=== PATIENT | male | born 1985 | race Caucasian/White ===

== ENCOUNTER 2023-06-13 13:06 | Outpatient (AMB) | payer MEDICAID, SELFPAY ==
--- NOTE | 2023-06-13 13:19 | MHC.OFFVIS ---
Intake Intake Visit Reasons: nephrolithiasis Intake Note: New Patient presents for initial visit for nephrolithiasis Urology Medications: none Blood Thinner: none Network Consultant Required: No Accompanied by: Self / Same As Patient Allergies oxycodone [OXYCODONE] Allergy (Unknown, Unverified 06/13/23 14:33) ITCHY Medication List - Last Reconciled 06/13/23 by VIN Shah- clotrimazole-betamethasone 1-0.05 % appl topical BID diclofenac sodium 1% grams topical DIRECTED etanercept (Enbrel SureClick) 50 mg subcut QWEEK fluocinolone acetonide oil 0.01% drps otic (ears) gabapentin 600 mg PO TID PRN ibuprofen 600 mg PO Q6H PRN omeprazole 20 mg PO QAM HPI HPI Comments History of Present Illness Details Noah is a very pleasant 37-year-old male patient of Dr. Taylor. He presents to the office today as a new patient for nephrolithiasis. In discussion with the patient today he reports having seeked emergency room care at [facility] proximally 1 month ago for left-sided abdominal pain had been experiencing at which time a CT was ordered and performed. These results were reviewed with the patient today. 4 mm obstructing stone in the left UPJ. He reports previously following up with Dr. Lazar over 7 years ago for his longstanding history of nephrolithiasis at which time he required surgical intervention with ureteroscopy and stent placement for a obstructing stone. He reports pain has since subsided however he is unsure if he has urinated his stone. He currently denies any bothersome urinary issues or concerns. He does endorse to not be drinking plenty of water daily. When asked he denies urinary urgency, urinary frequency, incontinence, nocturia, hematuria, dysuria, foul smelling urine, changes to urinary stream, flank pain, fever, and or chills. He is happy with his current voiding parameters. Review of Systems Const All systems reviewed & are unremarkable except as noted in HPI and below Physical Exam Const General: cooperative, healthy appearing, comfortable, no acute distress, well developed, alert and awake Orientation/consciousness: patient oriented x3 Limitations: no limitations HEENT Head: Yes normal to inspection, Yes normocephalic and Yes atraumatic Ears: hearing grossly normal bilaterally Eyes General: appearance normal, both eyes and all related structures Neck Neck: Yes normal visual inspection and Yes trachea midline Chest Chest palpation & inspection: normal inspection of the chest Resp Effort & Inspection: normal respiratory effort and able to speak in complete sentences Cardio Rate: regular rate GI Inspection: Yes normal to inspection General: Yes no CVA tenderness Back/Spine/Pelvis Back: no CVA tenderness Skin General skin exam: no rashes or lesions noted Neuro General: patient oriented x3 Extrem General: Yes normal to inspection Psych Appearance: grossly normal and well kempt Mental Status: mental status grossly normal Speech and movement: Normal speech and movement present and Clear speech present Affect: normal affect Attitude: cooperative Thought process: Normal thought process present Thought content: Normal thought content present Insight: Fair insight present (Psych) Judgement: Fair judgement present (Psych) Results AMB Urinalysis, Automated UA Leukoctes 0 Alexis/uL Last Edit by [employer] on 06/13/23 13:29 UA Nitrite Negative Last Edit by [employer] on 06/13/23 13:29 UA Urobilinogen 0.2 mg/dL Last Edit by [employer] on 06/13/23 13:29 UA Protein 0 mg/dL Last Edit by [employer] on 06/13/23 13:29 UA pH 6.0 Last Edit by [employer] on 06/13/23 13:29 UA Blood 0 Willy/uL Last Edit by [employer] on 06/13/23 13:29 UA Specific [place] 1.020 Last Edit by [employer] on 06/13/23 13:29 UA Ketone Negative Last Edit by [employer] on 06/13/23 13:29 UA Bilirubin 0 mg/dL Last Edit by [employer] on 06/13/23 13:29 UA Glucose 0 mg/dL Last Edit by [employer] on 06/13/23 13:29 Results Reviewed Results Reviewed: Laboratory Last Values Urine pH (Auto) 6.0 06/13/23 13:21 Specific [place] (Auto) 1.020 06/13/23 13:21 Urine Protein (Auto) 0 mg/dL 06/13/23 13:21 Glucose (UA)(Auto) 0 mg/dL 06/13/23 13:21 Urine Ketones (Auto) Negative 06/13/23 13:21 Urine Blood (Auto) 0 Willy/uL 06/13/23 13:21 Urine Nitrite (Auto) Negative 06/13/23 13:21 Urine Bilirubin (Auto) 0 mg/dL 06/13/23 13:21 Urine Urobilinogen (Auto) 0.2 mg/dL 06/13/23 13:21 Leukocyte Esterase (Auto) 0 Alexis/uL 06/13/23 13:21 Assessment & Plan Assessment & Plan (1) Nephrolithiasis: Code(s): N20.0 - Calculus of kidney Plan In office urinalysis results reviewed with the patient today; as noted above. Will obtain retroperitoneal ultrasound for further assessment evaluation. Patient currently denies any bothersome urinary issues or concerns. Discussed at length potential causes of nephrolithiasis. Discussed, educated, and stressed the importance of drinking plenty of water daily. Discussed possible near future metabolic workup for further assessment evaluation. Patient reports be happy with current voiding parameters. Follow-up in 1month with imaging to be completed prior; or sooner with any issues, concerns, and or questions. Orders: Orders US retroperitoneal comp Today N20.0 - Calculus of kidney AMB Urinalysis Automated Today Z13.9 - Encounter for screening, unspecified Patient Instructions: The patient had an opportunity to ask questions regarding the treatment plan. All questions were answered. Physical exam, labs, and imaging were discussed and reviewed in detail. As well as risks, benefits, and discussion of treatment choices. No major barriers to understanding were identified. The patient expressed understanding and agreement with the above treatment plan. The patient was made aware they should contact our office by phone for worsening of their current condition, the appearance of new symptoms, or with any questions or concerns. Compliance is encouraged with any medications and follow up testing that is ordered. It is a privilege to be allowed the opportunity to participate in? your urological care.? Again, if you have any questions or concerns If you have any questions or concerns please do not hesitate to contact me. The office is [phone]. This note is constructed using voice recognition software. While every effort has been made to ensure accuracy fish and wildlife technician errors may have been included. Yours sincerely, MELLISA Shah Coding Level of Care Code New Pt Level 3 (89832) Diagnoses Nephrolithiasis N20.0
== END 2023-06-13 13:45 | disposition home or self-care (01) ==
PROVIDERS: PCP Psychiatry & Neurology Psychiatry; Visit Provider Nurse Practitioner Family
DX: N20.0 Calculus of kidney (principal)
CPT/HCPCS: 99203

== ENCOUNTER → 2023-06-13 13:06 | Outpatient (BNVA) | payer MEDICAID, SELFPAY | PROVIDERS: PCP Psychiatry & Neurology Psychiatry; Visit Provider Nurse Practitioner Family | DX: N20.0 Calculus of kidney (principal) | CPT/HCPCS: 81003; 99212 ==

== ENCOUNTER 2023-07-04 14:29 | Outpatient (REF) | payer MEDICAID, SELFPAY ==
--- NOTE | ~2023-07-04 | US_ITS ---
EXAMINATION: US RETROPERITONEAL COMPLETE (RENAL) CLINICAL INFORMATION: Calculus of kidney. COMPARISON: None available. TECHNIQUE: Real-time imaging of the kidneys and bladder. FINDINGS: RIGHT KIDNEY: 10.1 x 5.2 x 4.1 cm (SAG x AP x TRV). The kidney is normal in size, contour, and echogenicity. Renal cortical thickness is normal. No focal parenchymal lesions or hydronephrosis. Nonobstructing stones measuring up to 4 mm. LEFT KIDNEY: 10.4 x 5.5 x 6.0 cm (SAG x AP x TRV). The kidney is normal in size, contour, and echogenicity. Renal cortical thickness is normal. No calculi or focal parenchymal lesions. No hydronephrosis. BLADDER: Well distended and normal. Bilateral ureteral jets are demonstrated. Prevoid bladder volume is 150 mL. Postvoid bladder volume is 12.3 mL. ADDITIONAL FINDINGS: Prostate is within normal limits measuring 12 mL in volume US/US retroperitoneal comp IMPRESSION: Nonobstructing right renal nephrolithiasis. No hydronephrosis.
== END 2023-07-04 14:30 | disposition home or self-care (01) ==
LOC: HO.US 14:29
PROVIDERS: Visit Provider Nurse Practitioner Family
DX: N20.0 Calculus of kidney (principal)
CPT/HCPCS: 76770

== ENCOUNTER 2023-07-14 15:20 | Outpatient (AMB) | payer MEDICAID, SELFPAY ==
--- NOTE | 2023-07-14 15:22 | A.OFFVIS_ITS ---
Intake Intake Visit Reasons: 4w/US(set) Intake Note: Patient presents for follow up visit for Nephrolithiasis and /ultrasound results Imagin07/04/23 Urology Medications: none Blood Thinner: none [employer] Required: No Accompanied by: Self / Same As Patient Allergies oxycodone [OXYCODONE] Allergy (Unknown, Verified 07/14/23 15:53) ITCHY Medication List - Last Reconciled 07/14/23 by VIN Shah-SHAD clotrimazole-betamethasone 1-0.05 % appl topical BID diclofenac sodium 1% grams topical DIRECTED etanercept (Enbrel SureClick) 50 mg subcut QWEEK fluocinolone acetonide oil 0.01% drps otic (ears) gabapentin 600 mg PO TID PRN ibuprofen 600 mg PO Q6H PRN omeprazole 20 mg PO QAM HPI HPI Comments History of Present Illness Details Noah is a very pleasant 37-year-old male patient of Dr. Taylor. He presents to the office today for follow-up. Of note, patient was seen approximately 1 month ago as a new patient for nephrolithiasis at which time a retroperitoneal ultrasound was ordered for further assessment evaluation. These results reviewed with the patient today. Right kidney with no lesions or hydronephrosis. Nonobstructing stones measuring up to 4 mm. Left kidney with no calculi, lesions, and or hydronephrosis. The bladder is well distended and normal. Bilateral ureteral jets are demonstrated. Pre void bladder volume is approximately 150 mL. Postvoid bladder volume is approximately 10 mL. Prostate is within normal size measuring approximately 12 mL. Patient reports pain had been experiencing approximately 2 months ago when he seeked emergency room care at [facility] [place] has since subsided. Discussed at length potential causes of nephrolithiasis. He does have a longstanding history of nephrolithiasis requiring surgical intervention with a ureteroscopy and stent placement in the past with Dr. Lazar. He otherwise currently denies any bothersome urinary issues or concerns. He does endorse to not be drinking plenty of water daily. When asked he denies urinary urgency, urinary frequency, incontinence, nocturia, hematuria, dysuria, foul smelling urine, changes to urinary stream, flank pain, fever, and or chills. He is happy with his current voiding parameters. Review of Systems Const All systems reviewed & are unremarkable except as noted in HPI and below Physical Exam Const General: cooperative, healthy appearing, comfortable, no acute distress, well developed, alert and awake Orientation/consciousness: patient oriented x3 Limitations: no limitations HEENT Head: Yes normal to inspection, Yes normocephalic and Yes atraumatic Ears: hearing grossly normal bilaterally Eyes General: appearance normal, both eyes and all related structures Neck Neck: Yes normal visual inspection and Yes trachea midline Chest Chest palpation & inspection: normal inspection of the chest Resp Effort & Inspection: normal respiratory effort and able to speak in complete sentences Cardio Rate: regular rate GI Inspection: Yes normal to inspection General: Yes no CVA tenderness Back/Spine/Pelvis Back: no CVA tenderness Skin General skin exam: no rashes or lesions noted Neuro General: patient oriented x3 Extrem General: Yes normal to inspection Psych Appearance: grossly normal and well kempt Mental Status: mental status grossly normal Speech and movement: Normal speech and movement present and Clear speech present Affect: normal affect Attitude: cooperative Thought process: Normal thought process present Thought content: Normal thought content present Insight: Fair insight present (Psych) Judgement: Fair judgement present (Psych) Results AMB Urinalysis, Automated UA Leukoctes 0 Alexis/uL Last Edit by Becca Wileydevon [facility] on 07/14/23 15 :36 UA Nitrite Negative Last Edit by Becca Wileydevon [facility] on 07/14/23 15: 36 UA Urobilinogen 0.2 mg/dL Last Edit by Becca Wileydevon [facility] on 4 15:36 UA Protein 0 mg/dL Last Edit by Becca Wileydevon [facility] on 07/14/23 15:36 UA pH 6.0 Last Edit by Becca Wileydevon [facility] on 07/14/23 15:36 UA Blood 80 Willy/uL [facility] on 07/14/23 15:36 UA Specific [place] 1.025 Last Edit by Becca Wileydevon [facility] on 15:36 UA Ketone Negative Last Edit by Becca Wileydevon [facility] on 07/14/23 15:3 6 UA Bilirubin 0 mg/dL Last Edit by Becca Wileydevon [facility] on 02/12/24 15: 36 UA Glucose 0 mg/dL Last Edit by Becca Wiley CMA on 07/14/23 15:36 Results Reviewed Results Reviewed: Laboratory Last Values Urine pH (Auto) 6.0 07/14/23 15:23 Specific [place] (Auto) 1.025 07/14/23 15:23 Urine Protein (Auto) 0 mg/dL 07/14/23 15:23 Glucose (UA)(Auto) 0 mg/dL 07/14/23 15:23 Urine Ketones (Auto) Negative 07/14/23 15:23 Urine Blood (Auto) 80 Willy/uL 07/14/23 15:23 Urine Nitrite (Auto) Negative 07/14/23 15:23 Urine Bilirubin (Auto) 0 mg/dL 07/14/23 15:23 Urine Urobilinogen (Auto) 0.2 mg/dL 07/14/23 15:23 Leukocyte Esterase (Auto) 0 Alexis/uL 07/14/23 15:23 EXAMINATION: US RETROPERITONEAL COMPLETE (RENAL) CLINICAL INFORMATION: Calculus of kidney. COMPARISON: None available. TECHNIQUE: Real-time imaging of the kidneys and bladder. FINDINGS: RIGHT KIDNEY: 10.1 x 5.2 x 4.1 cm (SAG x AP x TRV). The kidney is normal in size, contour, and echogenicity. Renal cortical thickness is normal. No focal parenchymal lesions or hydronephrosis. Nonobstructing stones measuring up to 4 mm. LEFT KIDNEY: 10.4 x 5.5 x 6.0 cm (SAG x AP x TRV). The kidney is normal in size, contour, and echogenicity. Renal cortical thickness is normal. No calculi or focal parenchymal lesions. No hydronephrosis. BLADDER: Well distended and normal. Bilateral ureteral jets are demonstrated. Prevoid bladder volume is 150 mL. Postvoid bladder volume is 12.3 mL. ADDITIONAL FINDINGS: Prostate is within normal limits measuring 12 mL in volume IMPRESSION: Nonobstructing right renal nephrolithiasis. No hydronephrosis. Assessment & Plan Assessment & Plan (1) Nephrolithiasis: Code(s): N20.0 - Calculus of kidney Plan In office urinalysis results reviewed with the patient today; as noted above. Recent retroperitoneal ultrasound results reviewed with the patient today; as noted above. Patient currently denies any bothersome urinary issues or concerns. Discussed, educated, and stressed the importance of continuing to drink plenty of water daily. Continue adding 1 oz of lemon juice to water daily. Start vitamin B6 as discussed and prescribed. He is happy with his current voiding parameters. Will obtain renal ultrasound in 6 months. Follow-up in 6 months with imaging to be completed prior; or sooner with any issues, concerns, and or questions. Orders: Orders AMB Urinalysis Automated Today R33.9 - Retention of urine, unspecified US renal BI 6 Months N20.0 - Calculus of kidney Medications: New pyridoxine (vitamin B6) 50 mg (1/2 x 100 mg) PO DAILY 90 days 45 tabs 1RF N13.2 - Hydronephrosis with renal and ureteral calculous obstruction Patient Instructions: The patient had an opportunity to ask questions regarding the treatment plan. All questions were answered. Physical exam, labs, and imaging were discussed and reviewed in detail. As well as risks, benefits, and discussion of treatment choices. No major barriers to understanding were identified. The patient expressed understanding and agreement with the above treatment plan. The patient was made aware they should contact our office by phone for worsening of their current condition, the appearance of new symptoms, or with any questions or concerns. Compliance is encouraged with any medications and follow up testing that is ordered. It is a privilege to be allowed the opportunity to participate in? your urological care.? Again, if you have any questions or concerns If you have any questions or concerns please do not hesitate to contact me. The office is [phone]. This note is constructed using voice recognition software. While every effort has been made to ensure accuracy tobacco sprayer errors may have been included. Yours sincerely, MELLISA Shah Coding Level of Care Code Est Pt Level 4 (14841) Diagnoses Nephrolithiasis N20.0
== END 2023-07-14 15:51 | disposition home or self-care (01) ==
PROVIDERS: PCP Psychiatry & Neurology Psychiatry; Visit Provider Nurse Practitioner Family
DX: N20.0 Calculus of kidney (principal); R33.9 Retention of urine, unspecified
CPT/HCPCS: 99214

== ENCOUNTER → 2023-07-14 15:20 | Outpatient (BNVA) | payer MEDICAID, SELFPAY | PROVIDERS: PCP Psychiatry & Neurology Psychiatry; Visit Provider Nurse Practitioner Family | DX: N20.0 Calculus of kidney (principal) | CPT/HCPCS: 81003; 99212 ==

== ENCOUNTER 2024-01-01 15:10 | Outpatient (REF) | payer MEDICAID, SELFPAY ==
--- NOTE | ~2024-01-01 | US_ITS ---
EXAMINATION: US RETROPERITONEAL LIMITED (RENAL ONLY) CLINICAL INFORMATION: Calculus of kidney. Patient states overnight hospitalization on December 27-December 28 at [facility] for left flank pain, patient states passed stone into bladder. COMPARISON: Ultrasound retroperitoneal 07/04/2023. Renal ultrasound 10/30/2011. X-ray KUB 10/16/2011. TECHNIQUE: Real-time imaging of the kidneys. Limited visualization due to bowel gas. FINDINGS: RIGHT KIDNEY: 9.8 x 5.3 x 5.8 cm (SAG x AP x TRV). Multiple renal calculi measuring 4 mm [id number] pole, 3 mm [id number] pole, 2 mm mid pole, and a 12 mm calcification versus cluster of calcifications upper pole. No hydronephrosis. Renal cortical thickness is normal. Limited visualization. LEFT KIDNEY: 12.1 x 6.0 x 4.8 cm (SAG x AP x TRV). No hydronephrosis. A 6 mm upper pole and 4 mm mid pole calculi. No hydronephrosis. Renal cortical thickness is normal. Limited visualization. US/US renal BI IMPRESSION: Bilateral renal calculi. No hydronephrosis.
== END 2024-01-01 15:11 | disposition home or self-care (01) ==
LOC: HO.US 15:10
PROVIDERS: Visit Provider Nurse Practitioner Family
DX: N20.0 Calculus of kidney (principal)
CPT/HCPCS: 76775

== ENCOUNTER 2024-01-16 09:35 | Outpatient (AMB) | payer MEDICAID, SELFPAY ==
--- NOTE | 2024-01-16 09:45 | A.OFFVIS_ITS ---
Intake Visit Reasons: 6m/US Intake Note: Patient of Clarita Lambert is Present for Ultrasound follow up Urology Med: Vitamin B6 Antibiotic Allergy: None Blood Thinner: None Patient states he was the ER for stones about 3 weeks ago Had Ultrasound a week after Currently patient has no complaints of pain or discomfort PVR: 69mls Supervising Appraiser Required: No Accompanied by: Self / Same As Patient Allergies oxycodone [OXYCODONE] Allergy (Unknown, Verified 01/16/24 09:50) ITCHY Medication List - Last Reconciled 01/16/24 by Regina Bills MD clotrimazole-betamethasone 1-0.05 % appl topical BID diclofenac sodium 1% grams topical DIRECTED etanercept (Enbrel SureClick) 50 mg subcut QWEEK fluocinolone acetonide oil 0.01% drps otic (ears) gabapentin 600 mg PO TID PRN ibuprofen 600 mg PO Q6H PRN omeprazole 20 mg PO QAM pyridoxine (vitamin B6) 50 mg (1/2 x 100 mg) PO DAILY 90 days HPI Comments Details: 01/16/24--Recent retroperitoneal ultrasound results reviewed with the patient today increase in stone burden bilateral stones visualized. Noah was in the emergency room at [facility] for left flank pain, he was given Flomax and thinks he passed a stone from the left kidney because the pain has resolved. Stressed the importance of continuing to drink plenty of water daily. Continue adding 1 oz of lemon juice to water daily. Cont vitamin B6. Discussed further evaluation with 24 hour urine collection we will check CT stone protocol. Review of chart: 07/14/23--Noah is a very pleasant 37-year-old male patient of Dr. Taylor. He presents to the office today for follow-up. Of note, patient was seen approximately 1 month ago as a new patient for nephrolithiasis at which time a retroperitoneal ultrasound was ordered for further assessment evaluation. These results reviewed with the patient today. Right kidney with no lesions or hydronephrosis. Nonobstructing stones measuring up to 4 mm. Left kidney with no calculi, lesions, and or hydronephrosis. The bladder is well distended and normal. Bilateral ureteral jets are demonstrated. Pre void bladder volume is approximately 150 mL. Postvoid bladder volume is approximately 10 mL. Prostate is within normal size measuring approximately 12 mL. Patient reports pain had been experiencing approximately 2 months ago when he seeked emergency room care at [facility] [place] has since subsided. Discussed at length potential causes of nephrolithiasis. He does have a longstanding history of nephrolithiasis requiring surgical intervention with a ureteroscopy and stent placement in the past with Dr. Lazar. He otherwise currently denies any bothersome urinary issues or concerns. He does endorse to not be drinking plenty of water daily. When asked he denies urinary urgency, urinary frequency, incontinence, nocturia, hematuria, dysuria, foul smelling urine, changes to urinary stream, flank pain, fever, and or chills. He is happy with his current voiding parameters. Review of Systems Const All systems reviewed & are unremarkable except as noted in HPI and below Reports no additional complaints Eyes Reports no additional complaints ENT Reports no additional complaints Card Reports no additional complaints Resp Reports no additional complaints GI Reports no additional complaints Reports as per HPI Musc Reports no additional complaints Skin/Breast Reports system reviewed and no additional complaints, except as documented Neuro Reports no additional complaints Psych Reports no additional complaints Endo Reports no additional complaints Maciel/Lymph Reports no additional complaints Aller/Immun Reports no additional complaints Office Procedures Post Void Residual Post Residual Void Post Void Residual (PVR): 69 [id number] Void Residual by ultrasound Results AMB Urinalysis, Automated UA Leukoctes 0 Alexis/uL Last Edit by DALLIN Branch on 01/16/24 10:00 UA Nitrite Negative Last Edit by Megan Dickey [facility] on 01/16/24 10:00 UA Urobilinogen 0.2 mg/dL Last Edit by Megan Dickey [facility] on 01/16/24 10:0 0 UA Protein 15 mg/dL Last Edit by Megan Dickey [facility] on 01/16/24 10:00 UA pH 6.0 Last Edit by DALLIN Branch on 01/16/24 10:00 UA Blood 0 Willy/uL Last Edit by Megan Dickey [facility] on 01/16/24 10:00 UA Specific [place] 1.015 Last Edit by Megan Dickey [facility] on 01/16/24 10: 00 UA Ketone Negative Last Edit by DALLIN Branch on 01/16/24 10:00 UA Bilirubin 0 mg/dL Last Edit by DALLIN Branch on 01/16/24 10:00 UA Glucose 0 mg/dL Last Edit by DALLIN Branch on 01/16/24 10:00 Results Reviewed Results Reviewed: Date of Service: 01/01/24 EXAMINATION: US RETROPERITONEAL LIMITED (RENAL ONLY) CLINICAL INFORMATION: Calculus of kidney. Patient states overnight hospitalization on December 27-December 28 at [facility] for left flank pain, patient states passed stone into bladder. COMPARISON: Ultrasound retroperitoneal 07/04/2023. Renal ultrasound 10/30/2011. X-ray KUB 10/16/2011. TECHNIQUE: Real-time imaging of the kidneys. Limited visualization due to bowel gas. FINDINGS: RIGHT KIDNEY: 9.8 x 5.3 x 5.8 cm (SAG x AP x TRV). Multiple renal calculi measuring 4 mm szt-wq-wpuut pole, 3 mm fqg-ny-shqud pole, 2 mm mid pole, and a 12 mm calcification versus cluster of calcifications upper pole. No hydronephrosis. Renal cortical thickness is normal. Limited visualization. LEFT KIDNEY: 12.1 x 6.0 x 4.8 cm (SAG x AP x TRV). No hydronephrosis. A 6 mm upper pole and 4 mm mid pole calculi. No hydronephrosis. Renal cortical thickness is normal. Limited visualization. IMPRESSION: Bilateral renal calculi. No hydronephrosis. 07/04/23 EXAMINATION: US RETROPERITONEAL COMPLETE (RENAL) CLINICAL INFORMATION: Calculus of kidney. COMPARISON: None available. TECHNIQUE: Real-time imaging of the kidneys and bladder. FINDINGS: RIGHT KIDNEY: 10.1 x 5.2 x 4.1 cm (SAG x AP x TRV). The kidney is normal in size, contour, and echogenicity. Renal cortical thickness is normal. No focal parenchymal lesions or hydronephrosis. Nonobstructing stones measuring up to 4 mm. LEFT KIDNEY: 10.4 x 5.5 x 6.0 cm (SAG x AP x TRV). The kidney is normal in size, contour, and echogenicity. Renal cortical thickness is normal. No calculi or focal parenchymal lesions. No hydronephrosis. BLADDER: Well distended and normal. Bilateral ureteral jets are demonstrated. Prevoid bladder volume is 150 mL. Postvoid bladder volume is 12.3 mL. ADDITIONAL FINDINGS: Prostate is within normal limits measuring 12 mL in volume IMPRESSION: Nonobstructing right renal nephrolithiasis. No hydronephrosis. Assessment & Plan Assessment & Plan (1) Nephrolithiasis: Code(s): N20.0 - Calculus of kidney Category: Medical (2) Bilateral kidney stones: Code(s): N20.0 - Calculus of kidney Category: Medical (3) Left flank pain: Code(s): R10.9 - Unspecified abdominal pain Category: Medical Plan Recent retroperitoneal ultrasound results reviewed with the patient today; as noted above. Discussed, educated, and stressed the importance of continuing to drink plenty of water daily. Continue adding 1 oz of lemon juice to water daily. Cont vitamin B6 24 hr urine Noah was in the emergency room at [facility] for left flank pain, he was given Flomaxand thinks he passed a stone from the left kidney because the pain has resolved. CT stone protocol Orders: Orders AMB Post Void Residual by ultrasound Today Z13.9 - Encounter for screening, unspecified AMB Urinalysis Automated Today Z13.9 - Encounter for screening, unspecified CT abdomen pelvis wo IV con Today N20.0 - Calculus of kidney Patient Instructions: The patient had an opportunity to ask questions regarding treatment plan. The patient expressed understanding and agreement with the above treatment plan. The patient is aware they should contact our office by phone for worsening of their current condition or the appearance of new symptoms. Compliance is encouraged with any medications and followup testing that is ordered. It is a privilege to be allowed the opportunity to participate in the urologic care of your patient. If you have any questions or concerns regarding treatment for the above conditions please do not hesitate to contact me. The office telephone contact is [phone]. This note is constructed in part using voice recognition software. While every effort has been made to ensure accuracy service bar cashier errors may have been included. Yours sincerely, Regina Bills MD Coding Level of Care Code Est Pt Level 4 (67717) Diagnoses Nephrolithiasis N20.0 Bilateral kidney stones N20.0 Left flank pain R10.9 CPT Codes Post Residual Void - PVR CPT Code: 21159-Atxv Void Residual by ultrasound ([id number])
== END 2024-01-16 10:14 | disposition home or self-care (01) ==
PROVIDERS: PCP Psychiatry & Neurology Psychiatry; Visit Provider Urology
DX: N20.0 Calculus of kidney (principal); R10.9 Unspecified abdominal pain; Z13.9 Encounter for screening, unspecified
CPT/HCPCS: 99214

== ENCOUNTER → 2024-01-16 09:35 | Outpatient (BNVA) | payer MEDICAID, SELFPAY | PROVIDERS: PCP Psychiatry & Neurology Psychiatry; Visit Provider Nurse Practitioner Family | DX: N20.0 Calculus of kidney (principal); R10.9 Unspecified abdominal pain | CPT/HCPCS: 51798; 81003; 99212 ==

== ENCOUNTER 2024-05-27 16:49 | Outpatient (REF) | payer MEDICAID, SELFPAY ==
--- NOTE | ~2024-05-27 | CT_ITS ---
EXAMINATION: CT ABDOMEN AND PELVIS WITHOUT CONTRAST CLINICAL INFORMATION: Calculus of kidney. COMPARISON: Renal ultrasound 07/04/2023 TECHNIQUE: Multidetector volumetric imaging was performed from the superior aspect of the liver through the pubic symphysis. Sagittal and coronal reformatted images were obtained on the technologist's workstation. This CT examination was performed using dose optimization techniques as appropriate, variously including the following: *Automated exposure control *Adjustment of mA and/or kV according to patient size (this includes techniques or standardized protocols for targeted exams where dose is matched to indication/reason for exam; i.e. extremities or head) *Use of iterative reconstruction technique DLP: 440 mGy-cm FINDINGS: LUNG BASES: The visualized lung bases are unremarkable. LIVER, GALLBLADDER, AND BILIARY TREE: The liver is normal in size, shape, and attenuation. No focal hepatic lesion or biliary ductal dilatation is present. The gallbladder is unremarkable with no evidence of radiopaque gallstones, gallbladder wall thickening, or obvious pericholecystic inflammatory changes. PANCREAS: Unremarkable. SPLEEN: Unremarkable. ADRENAL GLANDS: Unremarkable. KIDNEYS AND URETERS: The kidneys are normal in size, shape, and attenuation. There is bilateral nephrolithiasis. The largest radiopaque calculi upper pole right kidney measures 1 cm. There is no calyx cases or hydronephrosis seen. BLADDER: Unremarkable. GASTROINTESTINAL TRACT: There is scattered stool and gas seen in colon without distention. The appendix is normal. The small bowel loops are normal caliber. The stomach is nondistended and appears unremarkable. ABDOMINAL WALL: No significant hernia is appreciated. LYMPH NODES: Normal. VASCULAR: Unremarkable. PELVIC VISCERA: Unremarkable. OSSEOUS STRUCTURES: No aggressive lytic or sclerotic process seen. CT/CT abdomen pelvis wo IV con IMPRESSION: 1. Bilateral nephrolithiasis without calyceal dilatation or hydronephrosis. 2. Mild constipation. Fleischner guidelines were followed. Electronically signed by: Jt Hayes MD 05/27/2024 07:22 PM EST
== END 2024-05-27 16:50 | disposition home or self-care (01) ==
LOC: HO.CT 16:49
PROVIDERS: Visit Provider Urology
DX: N20.0 Calculus of kidney (principal)
CPT/HCPCS: 74176

== ENCOUNTER → 2024-05-27 16:52 | Outpatient (BNV) | payer MEDICAID, SELFPAY | PROVIDERS: Visit Provider Radiology Diagnostic Radiology | DX: N20.0 Calculus of kidney (principal) | CPT/HCPCS: 74176 ==

== ENCOUNTER 2024-06-07 14:30 | Outpatient (AMB) | payer MEDICAID, SELFPAY ==
--- NOTE | 2024-06-07 12:25 | A.OFFVIS_ITS ---
Intake Visit Reasons: follow up/CT Intake Note: Patient is Present for Follow Up CT results Urology Medication: Vitamin B6 Antibiotic Allergies:None Blood Thinners: None Addiction Professional Required: No Accompanied by: Spouse Allergies oxycodone [OXYCODONE] Allergy (Unknown, Verified 06/07/24 14:56) ITCHY Medication List - Last Reconciled 06/07/24 by Regina Bills MD clotrimazole-betamethasone 1-0.05 % appl topical BID diclofenac sodium 1% grams topical DIRECTED etanercept (Enbrel SureClick) 50 mg subcut QWEEK fluocinolone acetonide oil 0.01% drps otic (ears) gabapentin 600 mg PO TID PRN ibuprofen 600 mg PO Q6H PRN omeprazole 20 mg PO QAM pyridoxine (vitamin B6) 50 mg (1/2 x 100 mg) PO DAILY 90 days HPI Comments Details: 06/07/24 Noah 38 year old, is here for follow-up, he states he sent his 24 hour urine collection off this morning; he had a CT stone protocol there were bilateral stones largest in the right kidney 1 cm. CTAP -05/27/24-KIDNEYS AND URETERS: The kidneys are normal in size, shape, and attenuation. There is bilateral nephrolithiasis. The largest radiopaque calculi upper pole right kidney measures 1 cm. There is no calyx cases or hydronephrosis seen. ESWL. Discussed risks to include but not limited to, blood in the urine, bruising to the skin, kidney hematoma, possible need for another procedure if a stone fragment obstructs the ureter while passing, possible need to repeat procedure if stone is not completely fragmented. Bilateral kidney stones, stone burden right greater than left. Right ESWL Review of chart: 01/16/24--Recent retroperitoneal ultrasound results reviewed with the patient today increase in stone burden bilateral stones visualized. Noah was in the emergency room at [facility] for left flank pain, he was given Flomax and thinks he passed a stone from the left kidney because the pain has resolved. Stressed the importance of continuing to drink plenty of water daily. Continue adding 1 oz of lemon juice to water daily. Cont vitamin B6. Discussed further evaluation with 24 hour urine collection we will check CT stone protocol. 07/14/23--Noah is a very pleasant 37-year-old male patient of Dr. Taylor. He presents to the office today for follow-up. Of note, patient was seen approximately 1 month ago as a new patient for nephrolithiasis at which time a retroperitoneal ultrasound was ordered for further assessment evaluation. These results reviewed with the patient today. Right kidney with no lesions or hydronephrosis. Nonobstructing stones measuring up to 4 mm. Left kidney with no calculi, lesions, and or hydronephrosis. The bladder is well distended and normal. Bilateral ureteral jets are demonstrated. Pre void bladder volume is approximately 150 mL. Postvoid bladder volume is approximately 10 mL. Prostate is within normal size measuring approximately 12 mL. Patient reports pain had been experiencing approximately 2 months ago when he seeked emergency room care at [facility] [place] has since subsided. Discussed at length potential causes of nephrolithiasis. He does have a longstanding history of nephrolithiasis requiring surgical intervention with a ureteroscopy and stent placement in the past with Dr. Lazar. He otherwise currently denies any bothersome urinary issues or concerns. He does endorse to not be drinking plenty of water daily. When asked he denies urinary urgency, urinary frequency, incontinence, nocturia, hematuria, dysuria, foul smelling urine, changes to urinary stream, flank pain, fever, and or chills. He is happy with his current voiding parameters. Review of Systems Const All systems reviewed & are unremarkable except as noted in HPI and below Reports no additional complaints Eyes Reports no additional complaints ENT Reports no additional complaints Card Reports no additional complaints Resp Reports no additional complaints GI Reports no additional complaints Reports as per HPI Musc Reports no additional complaints Skin/Breast Reports system reviewed and no additional complaints, except as documented Neuro Reports no additional complaints Psych Reports no additional complaints Endo Reports no additional complaints Maciel/Lymph Reports no additional complaints Aller/Immun Reports no additional complaints Results Reviewed Results Reviewed: Date of Service: 05/27/24 CT ABDOMEN AND PELVIS WITHOUT CONTRAST CLINICAL INFORMATION: Calculus of kidney. COMPARISON: Renal ultrasound 07/04/2023 TECHNIQUE: Multidetector volumetric imaging was performed from the superior aspect of the liver through the pubic symphysis. Sagittal and coronal reformatted images were obtained on the technologist's workstation. This CT examination was performed using dose optimization techniques as appropriate, variously including the following: *Automated exposure control *Adjustment of mA and/or kV according to patient size (this includes techniques or standardized protocols for targeted exams where dose is matched to indication/reason for exam; i.e. extremities or head) *Use of iterative reconstruction technique DLP: 440 mGy-cm FINDINGS: LUNG BASES: The visualized lung bases are unremarkable. LIVER, GALLBLADDER, AND BILIARY TREE: The liver is normal in size, shape, and attenuation. No focal hepatic lesion or biliary ductal dilatation is present. The gallbladder is unremarkable with no evidence of radiopaque gallstones, gallbladder wall thickening, or obvious pericholecystic inflammatory changes. PANCREAS: Unremarkable. SPLEEN: Unremarkable. ADRENAL GLANDS: Unremarkable. KIDNEYS AND URETERS: The kidneys are normal in size, shape, and attenuation. There is bilateral nephrolithiasis. The largest radiopaque calculi upper pole right kidney measures 1 cm. There is no calyx cases or hydronephrosis seen. BLADDER: Unremarkable. GASTROINTESTINAL TRACT: There is scattered stool and gas seen in colon without distention. The appendix is normal. The small bowel loops are normal caliber. The stomach is nondistended and appears unremarkable. ABDOMINAL WALL: No significant hernia is appreciated. LYMPH NODES: Normal. VASCULAR: Unremarkable. PELVIC VISCERA: Unremarkable. OSSEOUS STRUCTURES: No aggressive lytic or sclerotic process seen. IMPRESSION: 1. Bilateral nephrolithiasis without calyceal dilatation or hydronephrosis. 2. Mild constipation. Assessment & Plan Assessment & Plan (1) Nephrolithiasis: Code(s): N20.0 - Calculus of kidney Category: Medical (2) Bilateral kidney stones: Code(s): N20.0 - Calculus of kidney Category: Medical Plan continuing to drink plenty of water daily. Continue adding lemon juice to water daily. Cont vitamin B6. 24 hour urine results pending Right ESWL Patient Instructions: The patient had an opportunity to ask questions regarding treatment plan. The patient expressed understanding and agreement with the above treatment plan. The patient is aware they should contact our office by phone for worsening of their current condition or the appearance of new symptoms. Compliance is encouraged with any medications and followup testing that is ordered. It is a privilege to be allowed the opportunity to participate in the urologic care of your patient. If you have any questions or concerns regarding treatment for the above conditions please do not hesitate to contact me. The office telephone contact is [phone]. This note is constructed in part using voice recognition software. While every effort has been made to ensure accuracy electrician locomotive errors may have been included. Yours sincerely, Regina Bills MD Coding Level of Care Code Est Pt Level 4 (99052) Diagnoses Nephrolithiasis N20.0 Bilateral kidney stones N20.0
== END 2024-06-07 15:22 | disposition home or self-care (01) ==
PROVIDERS: PCP Psychiatry & Neurology Psychiatry; Visit Provider Urology
DX: N20.0 Calculus of kidney (principal)
CPT/HCPCS: 99214

== ENCOUNTER → 2024-06-07 14:30 | Outpatient (BNVA) | payer MEDICAID, SELFPAY | PROVIDERS: PCP Psychiatry & Neurology Psychiatry; Visit Provider Urology | DX: N20.0 Calculus of kidney (principal) | CPT/HCPCS: 99212 ==

== ENCOUNTER → 2024-08-04 06:11 | Outpatient (BNV) | payer MEDICAID, SELFPAY | PROVIDERS: Visit Provider Radiology Diagnostic Radiology | DX: N20.0 Calculus of kidney (principal) | CPT/HCPCS: 74018 ==

== ENCOUNTER 2024-08-04 09:01 | Day surgery (SDC) | payer MEDICAID, SELFPAY ==
--- NOTE | ~2024-08-04 | XR_ITS ---
EXAMINATION: XR ABDOMEN KUB CLINICAL INDICATION: right renal stone COMPARISON: None available. TECHNIQUE: AP view of the abdomen. FINDINGS: Rotator cuff secretions overlapping the right kidney shadow. No intestinal obstruction pattern. Osseous structures are intact. There is prominent right transverse process of L5 with the pseudoarthrosis to right S1. XR/XR KUB IMPRESSION: Probable nephrolithiasis, right kidney. 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 Electronically signed by: Gaston Britton MD 08/04/2024 09:30 AM MONTY
[2024-08-04 09:40] VITALS: BMI 33.5
[2024-08-04 09:48] VITALS: BP 133/82; PULSE 66; RESP 16; TEMP 36.7; O2SAT 96
--- NOTE | 2024-08-04 09:53 | W.PM.OPN ---
Operative Note Operative Note Date of Service: 08/04/24 Narrative: PreOperative Diagnosis:? ? Right Renal stone Post Operative Diagnosis:?Right? Renal stone Procedure:?Right? ESWL Surgeon:?Dr Regina Bills Anesthesia:? Monitored IV Sedation Indications for procedure: The patient understands there is a risk of bruising or hematoma to the kidney, infection, and stone migration following the procedure and subsequent intervention may be required.? - Imaging 10 mm x 9 mm stone Procedure: After informed consent was verified the patient was brought to the operating room and placed in a supine position.? Anesthesia was performed per protocol. Safety pause time-out was performed. Imaging was displayed in the room and laterality confirmed. ESWL was performed.?The stone was visualized on both fluoroscopy and ultrasound.? Shockwave lithotripsy was performed, with a maximum rate of 120 hertz. After the first 300 shocks a pause for 3 minutes was completed.? A total of 2500 shocks to a maximum of power of 20 after 1200 shocks with a maximum rate of 120 hertz.? Good fragmentation of the stone was appreciated. The patient tolerated the procedure well and was transferred to the recovery area upon completion. Complications: None
--- NOTE | 2024-08-04 09:54 | MHC.SHP ---
Pre-Procedural Eval Section A - 24 Hr Update-Section A only Date of Service: 08/04/24 The patient is an INPATIENT: No The patient has been examined within 24 hours of the surgical procedure. The History & Physical has been completed within 30 days and I have reviewed it.: Yes Section B - Complete if H&P > 30 days Chief Complaint: Calculus of kidney Allergies: Allergies Allergy/AdvReac Type Severity Reaction Status Date / Time oxycodone [OXYCODONE] Allergy Unknown ITCHY Verified 08/04/24 09:47 Plan Diagnosis/Plan: Unchanged I have reviewed the history and physical and performed a pertinent physical examination on my patient. No changes have occurred unless specified. Right ESWL. Discussed risks to include but not limited to, blood in the urine, bruising to the skin, kidney hematoma, possible need for another procedure if a stone fragment obstructs the ureter while passing, possible need to repeat procedure if stone is not completely fragmented. Time Spent With Patient Time: Total time managing care of this patient today ____ minutes.
--- NOTE | 2024-08-04 10:02 | P.CONAN_ITS ---
Documented by User: Jane Calles NP 08/03/24 10:17 HPI - Anesthesia Eval Consult details Narrative: 38yo M for Right Lithotripsy ESW PMFSH Active Problems Active Problems: All Active Problems Left flank pain (Acute) Bilateral kidney stones (Acute) Nephrolithiasis (Acute) Social History Social History Patient Tobacco Use Status: Never used Tobacco Use of substances other than those prescribed or required for medical reasons: No Are you DNR?: No Advance Directives: No Advance Directives Information Provided: Yes Meds Allergies Allergy/AdvReac Type Severity Reaction Status Date / Time oxycodone [OXYCODONE] Allergy Unknown ITCHY Verified 08/04/24 09:47 Home Medications ?Medication ?Instructions ?Recorded ?Confirmed ?Last Taken ?Type clotrimazole-betamethasone 1 appl topical BID 06/13/23 06/07/24 Unknown History %-0.05 % topical cream diclofenac sodium 1 % topical gel g topical DIRECTED 06/13/23 06/07/24 Unknown History etanercept 50 mg/mL (1 mL) 50 mg subcut QWEEK 06/13/23 08/04/24 Unknown History subcutaneous pen injector ([employer]) fluocinolone acetonide oil 0.01 % drp otic (ears) 06/13/23 06/07/24 Unknown History ear drops gabapentin 600 mg tablet 600 mg PO TID PRN Pain 06/13/23 08/04/24 Unknown History ibuprofen 600 mg tablet 600 mg PO Q6H PRN Pain 06/13/23 08/04/24 Unknown History omeprazole 20 mg capsule,delayed 20 mg PO QAM 06/13/23 08/04/24 08/04/24 08:00 History release Assessment and Plan Assessment Anesthesia Assessment: Chart Reviewed Documented by User: Cindy Turk DO 08/04/24 10:04 PMFSH Family History Family history of problems with anesthesia: No Surgical History History of Problems with Anesthesia: No Social History Social History Patient Tobacco Use Status: Never used Tobacco Use of substances other than those prescribed or required for medical reasons: No Are you DNR?: No Advance Directives: No Advance Directives Information Provided: Yes Meds Allergies Allergy/AdvReac Type Severity Reaction Status Date / Time oxycodone [OXYCODONE] Allergy Unknown ITCHY Verified 08/04/24 09:47 Home Medications ?Medication ?Instructions ?Recorded ?Confirmed ?Last Taken ?Type clotrimazole-betamethasone 1 appl topical BID 06/13/23 06/07/24 Unknown History %-0.05 % topical cream diclofenac sodium 1 % topical gel g topical DIRECTED 06/13/23 06/07/24 Unknown History etanercept 50 mg/mL (1 mL) 50 mg subcut QWEEK 06/13/23 08/04/24 Unknown History subcutaneous pen injector ([employer]) fluocinolone acetonide oil 0.01 % drp otic (ears) 06/13/23 06/07/24 Unknown History ear drops gabapentin 600 mg tablet 600 mg PO TID PRN Pain 06/13/23 08/04/24 Unknown History ibuprofen 600 mg tablet 600 mg PO Q6H PRN Pain 06/13/23 08/04/24 Unknown History omeprazole 20 mg capsule,delayed 20 mg PO QAM 06/13/23 08/04/24 08/04/24 08:00 History release Exam Exam Date and Time: 08/04/24 1000 Height,Weight and Vital Signs: Height 5 ft 2 in Weight 83 kg Vital Signs Temperature 98.1 F 08/04/24 09:48 Pulse Rate 66 08/04/24 09:48 Respiratory Rate 16 08/04/24 09:48 Blood Pressure 133/82 08/04/24 09:48 Pulse Oximetry 96 08/04/24 09:48 Oxygen Delivery Method Room Air 08/04/24 09:48 Temperature 98.1 F 08/04/24 09:48 Pulse Rate 66 08/04/24 09:48 Respiratory Rate 16 08/04/24 09:48 Blood Pressure 133/82 08/04/24 09:48 Pulse Oximetry 96 08/04/24 09:48 Oxygen Delivery Method Room Air 08/04/24 09:48 Airway Mallampati Class: II TM Dist: >3cm Neck ROM: Full Loose/Missing/Broken Teeth: No (patient denies any loose or broken teeth) Heart: S1S2 Lungs: CTAB Assessment and Plan Assessment Anesthesia Assessment: Anesthesia Plan Discussed and Chart Reviewed Final Anesthetic Review Family History of Problems with Anesthesia: No History of Problems with Anesthesia: No NPO: Yes ASA Class: II Final Preanesthetic Review: No Changes in Pt Med Stat, Meds/Allgs Chart Reviewed, Consent Obtained/Reviewed and Anes Risks/Benef Reviewed Patient Risk: Low Procedure Risk: Low Anesthetic Plan Anesthetic Plan: MAC: and Agree w/ Assess. and Plan Disposition: Standard PACU
[2024-08-04] MEDS: Lactated Ringers 1,000 ML 100 ML IVCONT (10:06)
[2024-08-04] MEDS: Lactated Ringers 500 ML 999 ML IV (10:07)
[2024-08-04] MEDS: ceFAZolin Sodium/Dextrose,Iso 2 GM/50 ML PIGGYBACK IV (10:15)
[2024-08-04 10:49] VITALS: BP 117/72; PULSE 69; RESP 17; TEMP 36.2; O2SAT 97
[2024-08-04 10:56] VITALS: BP 112/65; PULSE 61; RESP 17; O2SAT 96
[2024-08-04 11:12] VITALS: BP 107/70; PULSE 59; RESP 17; TEMP 36.3; O2SAT 96
== END 2024-08-04 11:47 | disposition home or self-care (01) ==
PROVIDERS: Visit Provider Urology
PROC: (CPT 50590; principal; 2024-08-04 11:00)
DX: N20.0 Calculus of kidney (principal); Z87.442 Personal history of urinary calculi; K59.00 Constipation, unspecified; Z79.899 Other long term (current) drug therapy; Z79.1 Long term (current) use of non-steroidal anti-inflammatories (NSAID); Z88.5 Allergy status to narcotic agent
CPT/HCPCS: 50590; 74018; J0131; J0690; J1100; J2003; J2250; J2405; J2704

== ENCOUNTER → 2024-08-04 09:01 | Outpatient (BNV) | payer MEDICAID, SELFPAY | PROVIDERS: Visit Provider Urology | DX: N20.0 Calculus of kidney (principal) | CPT/HCPCS: 50590 ==

== ENCOUNTER 2024-09-06 13:22 | Outpatient (REF) | payer MEDICAID, SELFPAY ==
--- NOTE | ~2024-09-06 | US_ITS ---
EXAMINATION: US KIDNEY BILATERAL HISTORY: R10.9 - Unspecified abdominal pain TECHNIQUE: Real-time grayscale ultrasound imaging of the kidneys was performed and images were reviewed. COMPARISON: Comparison is made with the prior examination dated 01/01/2024. FINDINGS: Right kidney: The right kidney measures 10.3 x 6.1 x 5.5 cm. Renal parenchymal echotexture and thickness are normal. There are no masses. Multiple nonobstructing calculi are identified including a 3 mm calculus at the upper pole, a 2 mm calculus in the interpolar region, and a 3 mm calculus at the lower pole. There is no hydronephrosis. Left Kidney: The left kidney measures 10.4 x 6.1 x 6.1 cm. Renal parenchymal echotexture and thickness are normal. There are no masses. There is a 5 x 2 x 3 mm nonobstructing calculus in the interpolar region. There is no hydronephrosis. US/US renal BI IMPRESSION: Bilateral nephrolithiasis as described. No hydronephrosis. Electronically signed by: Chase Goff MD 09/06/2024 02:08 PM EDT
--- OUTSIDE RECORDS SUMMARY | 2024-09-06 15:54 | XMS_ITS | Encounter Summary ---
Author Organization [employer] Address [address] [place] [address] 7 [place] [address] Care Team Providers Care Superintendent Car Construction Name Role Phone Denise Coyne Primary Care Provider Un available Judy Duque Unavailable Unavailable Weston Millan Unavailable Unavailable Mai Garcia DO Primary Care Provider [phone] Encounter Details Date Type Department Care Team (Latest Contact Info) Description 07/06/2018 Abstract [facility] CONVERSIONS Dental, Provider, DDS Social History Tobacco Use Types Packs/Day Years Used Date Smoking Tobacco: Never Assessed Sex and Gender Information Value Date Recorded Sex Assigned at Male 06/17/2022 2:17 PM EST Legal Sex Male 5:35 PM EDT Gender Identity Male 06/17/2022 2:17 PM EST Sexual Orientation Choose not to disclose 2022 11:07 AM EST documented as of this encounter Plan of Treatment Upcoming Encounters Date Type Department Care Team (Late st Contact Info) Description 12/06/2024 1:45 PM EDT Office Visit [facility] MEDICAL [address] [place] [address] Mai Garcia DO [address] [place] [address] 03/24/2025 3:00 PM EDT Office Visit [facility] DENTAL [address] [place] [address] Carmela Ha documented as of this encounter Visit Diagnoses Not on filedocumented in this encounter Care Teams Superintendent Car Construction Relationship Specialty Start Date End Date Denise oCyne FNP PCP - General Family Medicine 06/17/22 04/06/23 Mai Garcia DO [address] [place] [address] PCP - General Family Medicine 04/07/23 Judy Duque Health Navigator Financial Counseling and Assistance Services 02/19/23 Weston Millan Community Health Worker 03/03/23 documented as of this encounter
--- OUTSIDE RECORDS SUMMARY | 2024-09-06 15:54 | XMS_ITS | Encounter Summary ---
Author Organization [employer] Address [address] [facility] [address] [facility] [address] [place] [address] Care Team Providers Care Refrigeration Engine Operator Name Role Phone Neto Judy Unavailable Unavailable Weston Millan Unavailable Unavailable Mai Garcia DO Primary Care Provider [phone] Encounter Details Date Type Department Care Team (Late st Contact Info) Description 04/22/2024 Orders Only [facility] [address] [place] [address] Mai Garcia DO [address] [place] [address] Social History Tobacco Use Types Packs/Day Years Used Date Smoking Tobacco: Former Cigarettes Q uit: 07/2021 Passive Smoke Exposure: Past Smokeless Tobacco: Never Alcohol Use Standard Drinks/Week Comments Not Currently 0 (1 standard drink = 0.6 oz pur e alcohol) Quit in Jun 2018 Housing Stability Answer Date Recorded What is your housing situation today? I have zo dueñas 12/01/[address] you li ve. Do you have problems with any of the following? None of the above 12/01/2023 Food Insecurity Answer Date Recorded Within the past 12 months, y ou worried that your food would run out before you got money to buy more: Never True 12/01/2023 Within the past 12 months,th e food you bought just didn't last and you didn't have enough money to get more: Never True 06/2023 Transportation Answer Date Recorded In the past 12 months, has l ack of transportation kept you from medical appts, meetings, work or from getting things needed for daily living? No 12/01/2023 Utilities Answer Date Recorded In the past 12 months, has t he electric, gas, oil or water company threatened to shut off services in your home? No 12/01/2023 Depression Answer Date Recorded Patient Health Questionnaire-2 Score 0 10/18/2022 Internet Access Answer Date Recorded Internet Access Q1 Yes 02/02/2024 Internet Access Q2 Not on file 02/02/2024 Sex and Gender Information Value Date Recorded Sex Assigned at Male 06/17/2022 2:17 PM EST Legal Sex Male 5:35 PM EDT Gender Identity Male 06/17/2022 2:17 PM EST Sexual Orientation Choose not to disclose 2022 11:07 AM EST Occupation Industry Job Start Date Job End Date Construction Not on file Not on file Not on file documented as of this encounter Plan of Treatment Upcoming Encounters Date Type Department Care Team (Late st Contact Info) Description 12/06/2024 1:45 PM EDT Office Visit [facility] MEDICAL [address] [place] [address] Mai Garcia DO [address] [place] [address] 03/24/2025 3:00 PM EDT Office Visit [facility] DENTAL [address] [place] [address] Carmela Ha documented as of this encounter Procedures Procedure Name Priority Date/Time Associated Diagnosis Comments US RENAL BI Routine 01/01/2024 3:05 PM EDT US RETROPERITONEUM Routine 07/04/2023 3:04 PM EST documented in this encounter Results * US RENAL BI (01/01/2024 3:05 PM EDT) Anatomical Region Laterality Modality Abdomen Ultrasound us Mai Garcia DO IMG US PROCEDURES Final Result * US Retroperitoneum (07/04/2023 3:04 PM EST) Anatomical Region Laterality Modality Abdomen Ultrasound us Mai Garcia DO IMG US PROCEDURES Final Result documented in this encounter Visit Diagnoses Not on filedocumented in this encounter Care Teams Refrigeration Engine Operator Relationship Specialty Start Date End Date Mai Garcia DO [address] [place] [address] PCP - General Family Medicine 04/07/23 Judy Duque Health Navigator Financial Counseling and Assistance Services 02/19/23 Weston Millan Community Health Worker 03/03/23 documented as of this encounter
--- OUTSIDE RECORDS SUMMARY | 2024-09-06 15:54 | XMS_ITS | Encounter Summary ---
Author Organization [employer] Address [address] [facility] [address] [facility] [facility] [address] [place] [address] Care Team Providers Care Child Care Sitter Name Role Phone Neto Judy Unavailable Unavailable Weston Millan Unavailable Unavailable Mai Garcia DO Primary Care Provider [phone] Encounter Details Date Type Department Care Team (Late st Contact Info) Description 02/17/2024 Orders Only [facility] [address] [place] [address] Mai Garcia DO [address] [place] [address] Social History Tobacco Use Types Packs/Day Years [...] Description 12/06/2024 1:45 PM EDT Office Visit [facility] MEDICAL [address] [place] [address] Mai Garcia DO [address] [place] [address] 03/24/2025 3:00 PM EDT Office Visit [facility] DENTAL [address] [place] [address] Carmela Ha documented as of this encounter Procedures Procedure Name Priority Date/Time Associated Diagnosis Comments SED RATE BY MODIFIED WESTERGREN Routine 02/12/2024 7:33 AM EDT COMPREHENSIVE METABOLIC PANEL Routine 02/12/2024 7:32 AM EDT documented in this encounter Results * Sed Rate by Modified Westergren (02/12/2024 7:33 AM EDT) Blood Venous blood specimen / Unknown Mai [facility] LAB BLOOD ORDERABLES Final Res ult * Comprehensive Metabolic Panel (02/12/2024 7:32 AM EDT) Blood Venous blood specimen / Unknown [facility] LAB BLOOD ORDERABLES Final Res ult documented in this encounter Visit Diagnoses Not on filedocumented in this encounter Care Teams Child Care Sitter Relationship Specialty Start Date End Date JoseMai [address] [place] [address] PCP - General Family Medicine 04/07/23 Judy Duque Health Navigator Financial Counseling and Assistance Services 02/19/23 Weston Millan Community Health Worker 03/03/23 documented as of this encounter
--- OUTSIDE RECORDS SUMMARY | 2024-09-06 15:54 | XMS_ITS | Encounter Summary ---
Author Organization [employer] Address [address] [facility] [address] [address] [place] [address] Care Team Providers Care Furnace Operator And Tender Name Role Phone Neto Judy Unavailable Unavailable Weston Millan Unavailable Unavailable Mai Garcia DO Primary Care Provider [phone] Encounter Details Date Type Department Care Team (Late st Contact Info) Description 05/01/2023 Orders Only [facility] [address] [place] [address] Mai Garcia DO [address] [place] [address] Social History Tobacco Use Types Packs/Day Years Used Date Smoking Tobacco: Former Cigarettes Q uit: 07/2021 Passive Smoke Exposure: Past Smokeless Tobacco: Never Alcohol Use Standard Drinks/Week Comments Not Currently 0 (1 standard drink = 0.6 oz pur e alcohol) Quit in Jun 2018 Housing Stability Answer Date Recorded What is your housing situation today? I have zo dueñas 03/27/[address] you li ve. Do you have problems with any of the following? None of the above 03/27/2023 Food Insecurity Answer Date Recorded Within the past 12 months, y ou worried that your food would run out before you got money to buy more: Never True 03/27/2023 Within the past 12 months,th e food you bought just didn't last and you didn't have enough money to get more: Never True Transportation Answer Date Recorded In the past 12 months, has l ack of transportation kept you from medical appts, meetings, work or from getting things needed for daily living? No 03/27/2023 Utilities Answer Date Recorded In the past 12 months, has t he electric, gas, oil or water [employer] threatened to shut off services in your home? No 03/27/2023 Depression Answer Date Recorded Patient Health Questionnaire-2 Score 0 10/18/2022 Sex and Gender Information Value Date Recorded [...] Description 12/06/2024 1:45 PM EDT Office Visit [facility] MEDICAL [address] [place] [address] Mai Garcia DO [address] [place] [address] 03/24/2025 3:00 PM EDT Office Visit [facility] DENTAL [address] [place] [address] Carmela Ha documented as of this encounter Procedures Procedure Name Priority Date/Time Associated Diagnosis Comments SED RATE BY MODIFIED WESTERGREN Routine 04/30/2023 CBC AND DIFFERENTIAL - WAM A ND NON-WAM Routine 04/30/2023 documented in this encounter Results * Sed Rate by Modified Westergren (04/30/2023) Blood Venous blood specimen / Unknown Mai Garcia LAB BLOOD ORDERABLES Edited Re sult - Final * CBC and differential (04/30/2023) Blood Venous blood specimen / Unknown Mai Garcia LAB BLOOD ORDERABLES Edited Re sult - Final documented in this encounter Visit Diagnoses Not on filedocumented in this encounter Care Teams Furnace Operator And Tender Relationship Specialty Start Date End Date Mai Garcia DO [address] [place] [address] PCP - General Family Medicine 04/07/23 Judy Duque Health Navigator Financial Counseling and Assistance Services 02/19/23 Weston Millan Community Health Worker 03/03/23 documented as of this encounter
--- OUTSIDE RECORDS SUMMARY | 2024-09-06 15:54 | XMS_ITS | Encounter Summary ---
Author Organization [employer] Address [address] [facility] [address] [place] [address] Care Team Providers Care Crust Sorter Name Role Phone Neto Judy Unavailable Unavailable Weston Millan Unavailable Unavailable Mai Garcia DO Primary Care Provider [phone] Encounter Details Date Type Department Care Team (Late st Contact Info) Description 08/01/2023 Orders Only [facility] [address] [place] [address] Mai Garcia DO [address] [place] [address] Social History Tobacco Use Types Packs/Day Years [...] t he electric, gas, oil or water [employer] threatened to shut off services in your [...] Description 12/06/2024 1:45 PM EDT Office Visit [facility] MEDICAL [address] [place] [address] Mai Garcia DO [address] [place] [address] 03/24/2025 3:00 PM EDT Office Visit [facility] DENTAL [address] [place] [address] Carmela Ha documented as of this encounter Procedures Procedure Name Priority Date/Time Associated Diagnosis Comments COMPREHENSIVE METABOLIC PANEL Routine 07/31/2023 8:39 AM EST CBC WITH AUTO DIFFERENTIAL Routine 07/31/2023 8:17 AM EST documented in this encounter Results * Comprehensive Metabolic Panel (07/31/2023 8:39 AM EST) Blood Venous blood specimen / Unknown Mai Garcia LAB BLOOD ORDERABLES Final Res ult * CBC auto differential (07/31/2023 8:17 AM EST) Blood Venous blood specimen / Unknown Mai Garcia LAB BLOOD ORDERABLES Final Res ult documented in this encounter Visit Diagnoses Not on filedocumented in this encounter Care Teams Crust Sorter Relationship Specialty Start Date End Date Mai Garcia DO [address] [place] [address] PCP - General Family Medicine 04/07/23 Judy Duque Health Navigator Financial Counseling and Assistance Services 02/19/23 Weston Millan Community Health Worker 03/03/23 documented as of this encounter
--- OUTSIDE RECORDS SUMMARY | 2024-09-06 15:54 | XMS_ITS | Encounter Summary ---
Author Organization [email or web address] Address [address] [facility] [address] [address] [place] [address] Care Team Providers Care Business Reporting Developer Name Role Phone Neto Judy Unavailable Unavailable Weston Millan Unavailable Unavailable Mai Garcia DO Primary Care Provider [phone] Encounter Details Date Type Department Care Team (Late st Contact Info) Description 06/04/2024 Orders Only [facility] [address] [place] [address] Mai Garcia DO [address] [place] [address] Social History Tobacco Use Types Packs/Day Years Used Date Smoking Tobacco: Former Cigarettes Q uit: 07/2021 Passive Smoke Exposure: Past Smokeless Tobacco: Never Alcohol Use Standard Drinks/Week Comments Not Currently 0 (1 standard drink = 0.6 oz pur e alcohol) Quit in Jun 2018 Alcohol Answer Date Recorded How often do you have a drink containing alcohol ? 0 06/03/2024 How many drinks containing a lcohol do you have on a typical day when you are drinking? 0 06/03/2024 How often do you have six or more drinks on one occasion? 0 06/03/2024 Housing Stability Answer Date Recorded What is [...] Date Recorded Patient Health Questionnaire-2 Score 0 06/03/2024 Internet Access Answer Date Recorded Internet Access Q1 Yes 02/02/2024 Internet Access Q2 Not on file 02/02/2024 Education Answer Date Recorded What is the highest level of school you have completed or the highest degree you have received? High school graduate 06/03/2024 Sex and Gender Information Value Date Recorded [...] Description 12/06/2024 1:45 PM EDT [facility] Visit [facility] MED[facility] [address] [place] [address] Mai Garcia DO [address] [place] [address] 03/24/2025 3:00 PM EDT Office Visit [facility] DENTAL [address] [place] [address] Carmela Ha documented as of this encounter Procedures Procedure Name Priority Date/Time Associated Diagnosis Comments CT ABDOMEN PELVIS WO CONTRAST Routine 05/27/2024 10:45 AM EST documented in this encounter Results * CT Abdomen Pelvis w/o Contrast (05/27/2024 10:45 AM EST) Anatomical Region Laterality Modality Body, Pelvis, Abdomen Computed T omography Mai Garcia DO IMG CT PROCEDURES Final Result documented in this encounter Visit Diagnoses Not on filedocumented in this encounter Care Teams Business Reporting Developer Relationship Specialty Start Date End Date JoseNegritaMai, [address] [place] [address] PCP - General Family Medicine 04/07/23 Judy Duque Health Navigator Financial Counseling and Assistance Services 02/19/23 Weston Millan Community Health Worker 03/03/23 documented as of this encounter
--- OUTSIDE RECORDS SUMMARY | 2024-09-06 15:54 | XMS_ITS | Encounter Summary ---
Author Organization [employer] Address [address] [place] [address] [address] [place] [address] Care Team Providers Care Textile Colorist Dyer Name Role Phone Denise Coyne Primary Care Provider Un available Judy Duque Unavailable Unavailable Weston Millan Unavailable Unavailable Mai Garcia DO Primary Care Provider [phone] Encounter Details Date Type Department Care Team (Latest Contact Info) Description 08/03/2018 Abstract [facility] CONVERSIONS Dental, Provider, DDS Social [...] 1:45 PM EDT Office Visit [facility] MEDICAL [address] [place] [address] Mai Garcia DO [address] [place] [address] 03/24/2025 3:00 PM EDT Office Visit [facility] DENTAL [address] [place] [address] Carmela Ha documented as of this encounter Visit Diagnoses Not on filedocumented in this encounter Care Teams Textile Colorist Dyer Relationship Specialty Start Date End Date Denise Coyne FNP PCP - General Family Medicine 06/17/22 04/06/23 Mai Garcia DO [address] [place] [address] PCP - General Family Medicine 04/07/23 Judy Duque Health Navigator Financial Counseling and Assistance Services 02/19/23 Weston Millan Community Health Worker 03/03/23 documented as of this encounter
--- OUTSIDE RECORDS SUMMARY | 2024-09-06 15:54 | XMS_ITS | Encounter Summary ---
Author Organization [employer] Address [address] [facility] [address] [place] [address] Care Team Providers Care Local Combination Truck Driver Name Role Phone Neto Judy Unavailable Unavailable Weston Millan Unavailable Unavailable Mai Garcia DO Primary Care Provider [phone] Encounter Details Date Type Department Care Team (Late st Contact Info) Description 12/03/2023 Orders Only [facility] MEDICAL [address] [place] [address] Provider, MD Michael Social History Tobacco Use Types Packs/Day Years [...] Description 12/06/2024 1:45 PM EDT Office Visit [facility] MEDICAL [address] [place] [address] Mai Garcia DO [address] [place] [address] 03/24/2025 3:00 PM EDT Office Visit [facility] DENTAL [address] [place] [address] Carmela Ha documented as of this encounter Procedures Procedure Name Priority Date/Time Associated Diagnosis Comments CREATINE KINASE, TOTAL Routine 12/01/2023 5:35 PM EDT documented in this encounter Results * Creatine Kinase, Total (12/01/2023 5:35 PM EDT) Blood Venous blood specimen / Unknown us Historical Provider LAB BLOOD ORDERABLES Neha l Result documented in this encounter Visit Diagnoses Not on filedocumented in this encounter Care Teams Local Combination Truck Driver Relationship Specialty Start Date End Date Mai Garcia DO [address] [place] [address] PCP - General Family Medicine 04/07/23 Judy Duque Health Navigator Financial Counseling and Assistance Services 02/19/23 Weston Millan Community Health Worker 03/03/23 documented as of this encounter
--- OUTSIDE RECORDS SUMMARY | 2024-09-06 15:54 | XMS_ITS | Encounter Summary ---
Author Organization [employer] Address [address] [place] [address] Care Team Providers Care Control Operator Flow Coat Name Role Phone Neto Judy Unavailable Unavailable Weston Millan Unavailable Unavailable Mai Garcia DO Primary Care Provider Encounter Details Date Type Department Care Team (Late st Contact Info) Description 05/05/2023 Orders Only [facility] [address] [place], [place] [phone] Pcp, Hussein Unassigned Social History Tobacco Use Types Packs/Day Years Used Date Smoking Tobacco: Former Cigarettes Q uit: 07/2021 Passive Smoke Exposure: Past Smokeless Tobacco: Never Alcohol Use Standard Drinks/Week Comments Not Currently 0 (1 standard drink = 0.6 oz pur e alcohol) Quit in Jun 2018 Housing Stability Answer Date Recorded What is your housing situation today? I have zosara dueñas 03/27/[address] you [...] PM EDT Office Visit [facility] MEDICAL [address] [place] [address] Mai Garcia DO [address] [place] [address] 03/24/2025 3:00 PM EDT Office Visit [facility] DENTAL [address] [place] [address] Carmela Ha documented as of this encounter Procedures Procedure Name Priority Date/Time Associated Diagnosis Comments QUANTIFERON TB GOLD Routine 04/30/2023 documented in this encounter Results * QuantiFERON TB Gold (04/30/2023) Blood Venous blood specimen / Unknown [facility] Unassigned Pcp LAB BLOOD ORDERABLES Vasiliy francis Result - Final documented in this encounter Visit Diagnoses Not on filedocumented in this encounter Care Teams Control Operator Flow Coat Relationship Specialty Start Date End Date Mai Garcia DO [address] [place] [address] PCP - General Family Medicine 04/07/23 Judy Duque Health Navigator Financial Counseling and Assistance Services 02/19/23 Weston Millan Community Health Worker 03/03/23 documented as of this encounter
--- OUTSIDE RECORDS SUMMARY | 2024-09-06 15:54 | XMS_ITS | Encounter Summary ---
Author Organization [employer] Address [address] [place] [address] Care Team Providers Care Information Assurance Specialist Name Role Phone Neto Judy Unavailable Unavailable Weston Millan Unavailable Unavailable Mai Garcia DO Primary Care Provider [phone] Encounter Details Date Type Department Care Team (Late st Contact Info) Description 04/05/2024 Orders Only [place] [facility] [address] [place] [address] Mai Garcia DO [address] [place] [address] Social History Tobacco Use Types Packs/Day Years [...] Description 12/06/2024 1:45 PM EDT Office Visit [facility] MEDICAL [address] [place] [address] Mai Garcia DO [address] [place] [address] 03/24/2025 3:00 PM EDT Office Visit [facility] DENTAL [address] [place] [address] Carmela Ha documented as of this encounter Procedures Procedure Name Priority Date/Time Associated Diagnosis Comments HOME SLEEP TEST Routine 03/18/2024 11:32 AM EDT documented in this encounter Results * Home sleep test (03/18/2024 11:32 AM EDT) Mai Garcia DO SLEEP CENTER ORDERABLES Final Result documented in this encounter Visit Diagnoses Not on filedocumented in this encounter Care Teams Information Assurance Specialist Relationship Specialty Start Date End Date Mai Garcia DO [address] [place] [address] PCP - General Family Medicine 04/07/23 Judy Duque Health Navigator Financial Counseling and Assistance Services 02/19/23 Weston Millan Community Health Worker 03/03/23 documented as of this encounter
--- OUTSIDE RECORDS SUMMARY | 2024-09-06 15:54 | XMS_ITS | Clinical Summary ---
Author Organization [employer] Address [address] [facility] 7[address] [place] [address] Care Team Providers Care Section Supervisor Name Role Phone NetoJudy Unavailable Unavailable Weston Millan Unavailable Unavailable Mai Garcia DO Primary Care Provider [phone] Allergies Active Allergy Reactions Criticality Noted Date Comments Dorzolamide Hcl 06/19/2022 Other reaction(s): burning and swelling Medications ibuprofen 600 MG tablet TAKE 1 TABLET BY MOUTH EVERY 6 HOURS NEEDED WITH FOOD 05/11/20 22 Active Enbrel SureClick 50 MG/ML injection 05/01/20 22 Active clotrimazole-b etamethasone (Lotrisone) creamIndicatio ns:Tinea cruris APPLY EXTERNALLY TWICE DAILY 15 g 1 03/11/20 23 Active Diclofenac Sodium 1 % gel as directed Transdermal 50 g 03/11/20 23 Active Additional Information Patient not taking.Reported on 08/30/2024 pyridoxine (Vitamin B-6) 100 MG tablet TAKE 1/2 TABLET (50 MG) BY MOUTH EVERY DAY 07/14/19 24 Active betamethasone, augmented, (Diprolene AF) 0.05 % creamIndicatio ns:Psoriasis vulgaris Apply 1g topically BID 50 g 1 10/06/19 24 Active omeprazole (PriLOSEC) [address] capsuleIndicat ions:Gastroeso phageal reflux disease, unspecified whether esophagitis present Take 1 capsule (20 mg) by mouth Once per day. Do not crush or chew. 30 capsule 2 12/29/19 24 Active tamsulosin (Flomax) 0.4 MG 24 hr capsule Take 0.4 mg by mouth Once per day. 12/29/19 24 Active DermOtic 0.01 % ear drops Administer 5 drops into each ear 2 times daily. 12/01/19 24 Active dorzolamide (Trusopt) 2 % ophthalmic solution Administer 1 drop into both eyes 3 times daily. 05/19/20 24 Active gabapentin (Neurontin) 600 MG tabletIndicati ons:Osteoarthr itis of spine with radiculopathy, cervical region,Other chronic pain TAKE 1 TABLET 3 TIMES A DAY BY MOUTH NEEDED 84 tablet 08/31/19 25 Active gabapentin (Neurontin) 600 MG tabletIndicati ons:Other chronic pain TAKE 1 TABLET 3 TIMES A DAY BY MOUTH NEEDED 84 tablet 03/11/20 23 025 Discontinued(R eorder (will not trigger notification to Pharmacy)) Active Problems Problem Noted Date Diagnosed Date Recurrent kidney stones 01/01/2024 Overview (05/09/2024): Bilateral nephrolithiasis on US Onychomycosis 08/05/2023 Assessment & Plan (08/05/2023 2:54 PM EST): Terbinafine x 6 weeks, may need to extend to 12 weeks Discussed nail care as healthy nail grows out Right rotator cuff tear 05/18/2023 Overview (06/23/2023): With biceps tendinitis Following with [facility], planning for arthroscopic surgery Psoriasis vulgaris 04/16/2023 Assessment & Plan (08/05/2023 2:51 PM EST): Psoriatic plaques of the knees currently; has also hand hand and ear canal manifestations in the past High potency topical steroid BID to knee plaques Refer to dermatology for ongoing management of psoriasis Assessment & Plan (04/16/2023 11:57 AM EST): Skin disease of ear canals in pt with established psoriatic arthritis. DermOtic steroid ear drops prescribed. Daytime somnolence 04/16/2023 Assessment & Plan (04/16/2023 11:55 AM EST): Lab testing for this purpose (CBC, thyroid, vitamin D) earlier in the year unremarkable. Concern for JOSE (intermediate risk) versus other sleep/wake disorder. 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 Gastroesophageal reflux disease 06/19/2022 Flexural eczema 06/19/2022 Depression 06/19/2022 Rotator cuff arthropathy of left shoulder 2021 Overview (04/16/2023): Following with [facility] and may require surgery. Gabapentin for pain Assessment & Plan (04/16/2023 12:02 PM EST): Pain reasonably well controlled with gabapentin, continue. Follow up with ortho as scheduled. Arthritis of right wrist 08/09/2021 Overview (06/19/2022): Last Assessment & Plan: Procedure: After an informed oral consent, under sterile conditions using Ethyl chloride spray for local anesthesia I have injected 30 mg DepoMedrol and 1.5 cc 1% Lidocaine into Right wrist from dorsal approach uneventfully. Details of post-procedure care were explained to the patient in the office and given in writing. Provider: Mima Perdomo MD Patient: Noah Guillaume : 1985 Date: 08/09/2021 Vitamin D deficiency 04/30/2021 Overview (06/19/2022): Last Assessment & Plan: Continue 72761 units Vit D daily Cervical radiculopathy 11/27/2020 Overview (06/19/2022): Last Assessment & Plan: Signs and symptoms of cervical radiculitis which is acute either from lateral recess stenosis or a disc herniation. We will get an MRI scan of the cervical spine. He was informed of the differential diagnosis. He will stop all anti-inflammatories and Flexeril and continue gabapentin which I prescribed to 300 mg twice daily and start prednisone at 40 mg daily for the next 3 days with a follow-up phone call thereafter. All risks and benefits of this treatment were discussed and more than 50% of this 31-minute visit was spent in [id number] conversation with the patient coordinating my care with out of his other physicians. Left lateral epicondylitis 06/23/2019 Overview (06/19/2022): Last Assessment & Plan: All signs and symptoms point to an acute left lateral epicondylitis. We talked about the origin of this as well as inflammation of the origin of the common extensor tendon sheath and the need to do cross frictional massaging as well as contrast baths and relative rest. Sacroiliitis 07/02/2018 Overview (06/19/2022): Last Assessment & Plan: Reviewed x-rays showing sacroiliitis. Syndrome is stable if not improved a little bit. He is to continue core strengthening, manage his weight, wear well fitting shoes with good shock absorption. Psoriatic arthritis 07/02/2018 Overview (04/16/2023): Previously on Embrel, now off for a few months d/t loss of insurance. Assessment & Plan (04/16/2023 12:00 PM EST): Encouraged to follow up with rheumatology; let us know if new referral is needed Inflammatory arthritis 07/02/2018 Osteoarthritis of cervical spine 07/02/2018 Overview (06/19/2022): Last Assessment & Plan: I reviewed previous x-ray indicating a moderate degree at C5-6 and C4-5 spondylitis without spondylolisthesis. Most recent episode of acute pain may have been secondary to acute cervical radiculopathy but now his neurologic exam in the upper extremities is nonfocal and he has no new symptoms but if this recurs I would like to do MRI of the cervical spine. Resolved Problems Problem Noted Date Diagnosed Date Resolved Date Smoker 06/19/2022 06/20/2022 Alcoholic hepatitis 06/19/2022 10/19/19 23 Encounters Date Type Department Care Team Description 08/30/2024 9:00 AM EDT Office Visit [facility] MEDICAL [address] [place] [address] Annamarie Ferreira MD Chronic left shoulder pain (Primary Dx); Rotator cuff arthropathy of left shoulder; Osteoarthritis of spine with radiculopathy, cervical region; Other chronic pain 08/26/2024 2:00 PM EDT Office Visit [facility] DENTAL [address] [place] [address] Enmanuel Palacios LLD 08/26/2024 9:20 AM EDT Office Visit [facility] DENTAL [address] [place] [address] Carmela Ha Dental calculus (Primary Dx); Accretions on teeth; Encounter for dental examination; Stage 3 grade B localized periodontitis per AAP/EFP 2017 classification; Stage 2 grade B localized periodontitis per AAP/EFP 2017 classification 08/13/2024 Telephone [facility] OPTOMETRY [address] [place] [address] Reynold Farr CMA Glasses rx 08/13/2024 Population Health Risk Score Community Care [facility] ([facility] Department [address] [place] [phone] Provider, Population Health Generic 06/15/2024 Telephone [facility] MEDICAL [address] [place] [address] Mai Garcia DO Leg Swelling; Leg Pain from Last 3 Months Immunizations Name Administration Dates Next Due DTP 08/17/1990, 6,02/25/1986,12/24 Hep B, Adolescent or Pediatric 10/20/1997,1997,04/25/1997 INFLUENZA INJECTABLE QUADRIV ALANT CCIIV4 MDCK Multi-dose vial 03/08/2019 IPV 08/17/1990, 6,02/25/1986,12/24 Influenza Injectable Quadriv alant Preservative Free IIV4 MDCK 04/07/2023 Influenza, IIV3, injectable 02/16/2021,0 02/24/2020,03/31/2018,05/27,04/05/2016,04/02/2013 Influenza, seasonal, injecta ble, preservative free 04/05/2024 Eli SARS-CoV-2 Vaccination 03/30/2021,2020 MMR 11/15/1997,08/10/1990 PPD Test 08/10/1990 Pneumococcal Conjugate PCV 20 02/02/2022 Pneumococcal Polysaccharide PPSV23 05/09/2014 TD (adult), 2 Lf tetanus tox oid, preservative free, adsorbed 09/19/2008,01/16/2000 Tdap 04/05/2016 Tetanus Toxoid, Unspecified 03/17/2013 Family History Medical History Relation Name Comments Bullous retinoschisis runs in the males in the family Other Relation Name Status Comments Other Social History Tobacco Use Types Packs/Day Years Used Date Smoking Tobacco: Former Cigarettes Q uit: 07/2021 Passive Smoke Exposure: Past Smokeless Tobacco: Never Tobacco Cessation:Counseling Given: Not Answered Alcohol Use Standard Drinks/Week Comments Not Currently [...] file Not on file Not on file Last Filed Vital Signs Vital Sign Reading Time Taken Comments Blood Pressure 138/95 08/30/2024 9:01 AM EDT Pulse 74 08/30/2024 9:01 AM EDT Temperature 37.1 ??C (98.7 ??F) 08/30/2024 9:01 AM ED T Respiratory Rate 16 12/01/2023 2:26 PM EDT Oxygen Saturation 99% 08/30/2024 9:01 AM EDT Inhaled Oxygen Concentration - - Weight 82.6 kg (182 lb 3.2 oz) 08/30/2024 9:01 A M EDT Height 157.5 cm (5' 2 ) 08/30/2024 9:01 AM EDT Body Mass Index 33.32 08/30/2024 9:01 AM EDT Plan of Treatment Upcoming Encounters Date Type Department Care Team (Late st Contact Info) Description 12/06/2024 1:45 PM EDT Office Visit [facility] MEDICAL [address] [place] [address] King Mai [address] [place] [address] 03/24/2025 3:00 PM EDT Office Visit [facility] DENTAL [address] [place] [address] Carmela Ha Health Maintenance Due Date Last Done Comments HIV Screening 1985 Family Planning (PISQ) 2000 Hepatitis C Screening 10/29/2003 Dental Oral Exam 07/12/2023 01/08/2023, , 04/01/2005, Additional history exists Dental Prophylaxis 07/12/2023 01/08/2023, 1 , 09/27/2004, Additional history exists COVID-19 Vaccine ( season) 2024 03/30/2021, 09/07/2020 SDOH Screening 11/30/2024 12/01/2023 Alcohol/Substance Use Screening 06/03/2025 06/03/2024 Depression Screening 06/03/2025 06/03/2024, 06/03/19 Dental X-Ray: Bitewings 08/27/2025 08/27/19 25, 12/11/2023, 01/08/2023, Additional history exists Tobacco Screening 08/30/2025 08/30/2024 Dental X-Ray: Full Mouth 01/09/2026 01/08/2023, 06/04 DTaP/Tdap/Td Vaccines (6 - Td or Tdap) 04/05/2026 04/05/2016, 03/17/2013, 09/19/2008, Additional history exists Lipid Panel 10/19/2027 10/18/2022, 12/28/2013 Zoster Vaccines (1 of 2) 10/29/2035 RSV Patients and Patients Aged 60 years or older (1 - 1-dose 75+ series) 2060 IPV Vaccines Completed 08/17/1990, 04/03, 02/25/1986, Additional history exists Hepatitis B Vaccines Completed 10/20/1997, 06/22/1997, 04/25/1997 Pneumococcal Vaccine: Pediatrics (0 to 5 Years) and At-Risk Patients (6 to 49) Years) Completed 02/02/2022, 05/09/2014 Influenza Vaccine Completed 04/05/2024, , 02/16/2021, Additional history exists HIB Vaccines Aged Out No longer eligi ble based on patient's age to complete this topic HPV Vaccines Aged Out No longer eligi ble based on patient's age to complete this topic Hepatitis A Vaccines Aged Out No long er eligible based on patient's age to complete this topic Meningococcal Vaccine Aged Out No mireya shawn eligible based on patient's age to complete this topic RSV under 20 months Aged Out No longe r eligible based on patient's age to complete this topic Rotavirus Vaccines Aged Out No longer eligible based on patient's age to complete this topic Procedures Procedure Name Priority Date/Time Associated Diagnosis Comments CASE PRESENTATION, DETAILED AND EXTENSIVE TREATMENT PLANNING Routine 08/26/2024 2:00 PM EDT 12 DO AMALGAM - 2 SURF, PRIMARY OR PERMANENT Routine 08/26/2024 2:00 PM EDT CASE PRESENTATION, DETAILED AND EXTENSIVE TREATMENT PLANNING Routine 08/26/2024 9:20 AM EDT BITEWINGS - 4 RADIOGRAPHIC IMAGES Routine 08/26/2024 9:20 AM EDT ORAL HYGIENE INSTRUCTIONS Routine 08/26/2024 9:20 AM EDT SCALING IN PRESENCE OF MOD-SEVERE GING INFL - FULL MOUTH, AFTER ORAL EVAL Routine 08/26/2024 9:20 AM EDT AMB REFERRAL TO SLEEP MEDICINE Routine 07/16/2024 Obstructive sleep apnea (adult) (pediatric) Full PROPHYLAXIS - ADULT Routine 01/08/2023 1:30 PM EDT INTRAORAL - COMPLETE SERIES OF RADIOGRAPHIC IMAGES Routine 01/08/2023 1:30 PM EDT PERIODIC ORAL EVALUATION - ESTABLISHED PATIENT Routine 01/08/2023 1:30 PM EDT LIPID PANEL, STANDARD Routine 10/18/2022 10:00 AM EDT from Last 3 Months or Most Recently Relevant to Health Maintenance Results * Referral to Sleep Medicine (07/16/2024) [facility] OUTPATIENT REFERRAL ORDERABLES Final Result * (ABNORMAL) Lipid Panel, Standard (10/18/2022 10:00 AM EDT) Cholesterol, Total 183 (<200) MG/DL [facility] Triglyceride (mg/dL) in Serum/Plasma 144 (<150) MG/DL [facility] HDL Cholesterol 39(L) (>39) MG/DL [facility] LDL Cholesterol, Calculated 115 (0-130) MG/DL [facility] Non HDL Chol. (LDL+VLDL) 144 (<160) MG/DL [facility] Comment: Testing performed or reported by [facility], a Service of [facility], [address] [place] [id number] Paco Brock MD, Merchandise Supervisor [facility]# [id number] 10/18/2022 10:0 0 AM EDT 10/18/2022 10:01 AM EDT Denise Coyne RECRUITER MANAGER LAB BLOOD ORDERABLES Neha l Result [address] [address] from Last 3 Months or Most Recently Relevant to Health Maintenance Insurance [facility] [place] [facility] [place] STAND ADULT DENTAL - [facility] FULL (MEDICAID) Care Teams Section Supervisor Relationship Specialty Start Date End Date Mai Garcia DO [address] [place] [phone] PCP - General Family Medicine 04/07/23 Judy Duque Navigator Financial Counseling and Assistance Services 02/19/23 Weston Millan Community Health Worker 03/03/23
== END 2024-09-06 13:23 | disposition home or self-care (01) ==
LOC: HO.US 13:22
PROVIDERS: Visit Provider Urology
DX: R10.9 Unspecified abdominal pain (principal); N20.0 Calculus of kidney
CPT/HCPCS: 76775

== ENCOUNTER → 2024-09-06 13:24 | Outpatient (BNV) | payer MEDICAID, SELFPAY | PROVIDERS: Visit Provider Radiology Diagnostic Radiology | DX: N20.2 Calculus of kidney with calculus of ureter (principal) | CPT/HCPCS: 76775 ==

== ENCOUNTER 2024-09-13 15:39 | Outpatient (REF) | payer MEDICAID, SELFPAY ==
--- OUTSIDE RECORDS SUMMARY | 2024-09-13 18:28 | XMS_ITS | Encounter Summary ---
Author Organization [employer] Address [address] [facility] [address] 7t [place] [address] Care Team Providers Care Purification Operator Helper Name Role Phone Neto Judy Unavailable Unavailable Weston Millan Unavailable Unavailable Mai Garcia DO Primary Care Provider [phone] Encounter Details Date Type Department Care Team (Late st Contact Info) Description 05/05/2023 Orders Only [facility] [address] [place], [place] [id number] Pcp, Hussein Unassigned Social History Tobacco Use [...] Description 12/06/2024 1:45 PM EDT Office Visit [facility] MEDICAL [address] [place] [address] Mai Garcia DO [address] [place] [address] 03/24/2025 3:00 PM EDT Office Visit [facility] DENTAL [address] [place] [address] Carmela Ha documented as of this encounter Procedures Procedure Name Priority Date/Time Associated Diagnosis Comments QUANTIFERON TB GOLD Routine 04/30/2023 documented in this encounter Results * QuantiFERON TB Gold (04/30/2023) Blood Venous blood specimen / Unknown [facility] Unassigned Pcp LAB BLOOD ORDERABLES Vasiliy francis Result - Final documented in this encounter Visit Diagnoses Not on filedocumented in this encounter Care Teams Purification Operator Helper Relationship Specialty Start Date End Date Mai Garcia DO [address] [place] [address] PCP - General Family Medicine 04/07/23 Judy Duque Health Navigator Financial Counseling and Assistance Services 02/19/23 Weston Millan Community Health Worker 03/03/23 documented as of this encounter
--- OUTSIDE RECORDS SUMMARY | 2024-09-13 18:28 | XMS_ITS | Encounter Summary ---
Author Organization [employer] Address [address] [facility] [address] 7t [place] [address] Care Team Providers Care Producer Director Name Role Phone Neto Judy Unavailable Unavailable Weston Millan Unavailable Unavailable Mai Garcia DO Primary Care Provider [phone] Encounter Details Date Type Department Care Team (Late st Contact Info) Description 12/03/2023 Orders Only [facility] MEDICAL [address] [place] [address] Provider, MD Michael Social History Tobacco Use [...] Description 12/06/2024 1:45 PM EDT Office Visit [facility] MEDICAL [address] [place] [address] Mai Garcia DO [address] [place] [address] 03/24/2025 3:00 PM EDT Office Visit [facility] DENTAL [address] [place] [address] Carmela Ha documented as of this encounter [...] on filedocumented in this encounter Care Teams Producer Director Relationship Specialty Start Date End Date Mai Garcia DO [address] [place] [address] PCP - General Family Medicine 04/07/23 Judy Duque Health Navigator Financial Counseling and Assistance Services 02/19/23 Weston Millan Community Health Worker 03/03/23 documented as of this encounter
--- OUTSIDE RECORDS SUMMARY | 2024-09-13 18:28 | XMS_ITS | Encounter Summary ---
Author Organization [employer] Address [address] 7t [place] [address] Care Team Providers Care Recycling Coordinator Name Role Phone Neto Judy Unavailable Unavailable Weston Millan Unavailable Unavailable Mai Garcia DO Primary Care Provider [phone] Encounter Details Date Type Department Care Team (Late st Contact Info) Description 08/01/2023 Orders Only [facility] [address] [place] [address] Mai Garcia DO [address] [place] [address] Social History Tobacco Use Types Packs/Day Years [...] t he electric, gas, oil or water [employer] threatened to shut off services in your [...] 12/06/2024 1:45 PM EDT Office Visit [facility] MEDICAL [address] [place] [address] Mai Garcia DO [address] [place] [address] 03/24/2025 3:00 PM EDT Office Visit [facility] DENTAL [address] [place] [address] Carmela Ha documented as of this encounter [...] on filedocumented in this encounter Care Teams Recycling Coordinator Relationship Specialty Start Date End Date Mai Garcia DO [address] [place] [address] PCP - General Family Medicine 04/07/23 Judy Duque Health Navigator Financial Counseling and Assistance Services 02/19/23 Weston Millan Community Health Worker 03/03/23 documented as of this encounter
--- OUTSIDE RECORDS SUMMARY | 2024-09-13 18:28 | XMS_ITS | Encounter Summary ---
Author Organization [employer] Address [address] [facility] [address] [facility] [address] [address] 7t [place] [address] Care Team Providers Care Candy Butcher Name Role Phone Neto Judy Unavailable Unavailable Weston Millan Unavailable Unavailable Mai Garcia DO Primary Care Provider [phone] Encounter Details Date Type Department Care Team (Late st Contact Info) Description 05/01/2023 Orders Only [facility] [address] [place] [address] Mai Garcia DO [address] [place] [address] Social History Tobacco Use Types Packs/Day Years [...] t he electric, gas, oil or water [employer] threatened to shut off services in your [...] Description 12/06/2024 1:45 PM EDT Office Visit [facility] MEDICAL [address] [place] [address] Mai Garcia DO [address] [place] [address] 03/24/2025 3:00 PM EDT Office Visit [facility] DENTAL [address] [place] [address] Carmela Ha documented as of this encounter [...] on filedocumented in this encounter Care Teams Candy Butcher Relationship Specialty Start Date End Date Mai Garcia DO [address] [place] [address] PCP - General Family Medicine 04/07/23 Judy Duque Health Navigator Financial Counseling and Assistance Services 02/19/23 Weston Millan Community Health Worker 03/03/23 documented as of this encounter
--- OUTSIDE RECORDS SUMMARY | 2024-09-13 18:28 | XMS_ITS | Encounter Summary ---
Author Organization [employer] Address [address] 7t [place] [address] Care Team Providers Care Manager Statistical Programming Name Role Phone Neto Judy Unavailable Unavailable Weston Millan Unavailable Unavailable Mai Garcia DO Primary Care Provider [phone] Encounter Details Date Type Department Care Team (Late st Contact Info) Description 02/17/2024 Orders Only [facility] [address] [place] [address] Mai Garcia DO [address] [place] [address] Social History Tobacco Use Types Packs/Day Years [...] Office Visit [facility] MEDICAL [address] [place] [address] Mai Garcia DO [address] [place] [address] 03/24/2025 3:00 PM EDT Office Visit [facility] DENTAL [address] [place] [address] Carmela Ha documented as of this encounter Procedures Procedure Name Priority Date/Time Associated Diagnosis Comments SED RATE BY MODIFIED WESTERGREN Routine 02/12/2024 7:33 AM EDT COMPREHENSIVE METABOLIC PANEL Routine 02/12/2024 7:32 AM EDT documented in this encounter Results * Sed Rate by Modified Westergren (02/12/2024 7:33 AM EDT) Blood Venous blood specimen / Unknown Mai [facility] LAB BLOOD ORDERABLES Final Res ult * Comprehensive Metabolic Panel (02/12/2024 7:32 AM EDT) Blood Venous blood specimen / Unknown [facility] LAB BLOOD ORDERABLES Final Res ult documented in this encounter Visit Diagnoses Not on filedocumented in this encounter Care Teams Manager Statistical Programming Relationship Specialty Start Date End Date JoseMai [address] [place] [address] PCP - General Family Medicine 04/07/23 Judy Duque Health Navigator Financial Counseling and Assistance Services 02/19/23 Weston Millan Community Health Worker 03/03/23 documented as of this encounter
--- OUTSIDE RECORDS SUMMARY | 2024-09-13 18:28 | XMS_ITS | Encounter Summary ---
Author Organization [employer] Address [address] [place] [address] 7 [place] [address] Care Team Providers Care Industrial Safety And Health Specialist Name Role Phone Denise Coyne Primary Care Provider Un available Judy Duque Unavailable Unavailable Weston Millan Unavailable Unavailable Mai Garcia DO Primary Care Provider [phone] Encounter Details Date Type Department Care Team [...] Description 12/06/2024 1:45 PM EDT Office Visit [facility] MEDICAL [address] [place] [address] Mai Garcia DO [address] [place] [address] 03/24/2025 3:00 PM EDT Office Visit [facility] DENTAL [address] [place] [address] Carmela Ha documented as of this encounter Visit Diagnoses Not on filedocumented in this encounter Care Teams Industrial Safety And Health Specialist Relationship Specialty Start Date End Date Denise Coyne FNP PCP - General Family Medicine 06/17/22 04/06/23 Mai Garcia DO [address] [place] [address] PCP - General Family Medicine 04/07/23 Judy Duque Health Navigator Financial Counseling and Assistance Services 02/19/23 Weston Millan Community Health Worker 03/03/23 documented as of this encounter
--- OUTSIDE RECORDS SUMMARY | 2024-09-13 18:28 | XMS_ITS | Clinical Summary ---
Author Organization [employer] Address [address] [facility] 7t [place] [address] Care Team Providers Care Claims Correspondence Clerk Name Role Phone NetoJudy Unavailable Unavailable Weston Millan Unavailable Unavailable Mai Garcia DO Primary Care Provider [phone] Allergies Active Allergy Reactions Criticality Noted Date [...] Overview (06/23/2023): With biceps tendinitis Following with [facility], planning for arthroscopic surgery [...] other sleep/wake disorder. Refer to sleep medicine salvage determiner (current) use of n on-steroidal anti-inflammatories (nsaid) [...] left shoulder 2021 Overview (04/16/2023): Following with [facility] and may require surgery. [...] Overview (06/19/2022): Last Assessment & Plan: Continue 24019 units Vit D daily Cervical radiculopathy 11/27/2020 [...] of this 31-minute visit was spent in [id number] conversation with the patient coordinating my care [...] Description 08/30/2024 9:00 AM EDT Office Visit [facility] MEDICAL [address] [place] [address] Annamarie Ferreira MD Chronic left shoulder pain (Primary Dx); Rotator cuff arthropathy of left shoulder; Osteoarthritis of spine with radiculopathy, cervical region; Other chronic pain 08/26/2024 2:00 PM EDT Office Visit [facility] DENTAL [address] [place] [address] Enmanuel Palacios LLD 08/26/2024 9:20 AM EDT Office Visit [facility] DENTAL [address] [place] [address] Carmela Ha Dental calculus (Primary Dx); Accretions on teeth; Encounter for dental examination; Stage 3 grade B localized periodontitis per AAP/EFP 2017 classification; Stage 2 grade B localized periodontitis per AAP/EFP 2017 classification 08/13/[address] [facility] OPTOMETRY [address] [place] [address] Reynold Farr CMA Glasses rx 08/13/2024 Population Health Risk Score Community Care [facility] (C3) Department [address] [place] [phone] Provider, Population Health Generic 06/15/[address] [facility] MEDICAL [address] [place] [address] Mai Garcia DO Leg Swelling; Leg Pain [...] 1:45 PM EDT Office Visit [facility] MEDICAL [address] [place] [address] King Mai [address] [place] [address] 03/24/2025 3:00 PM EDT Office Visit [facility] DENTAL [address] [place] [address] Carmela Ha Health Maintenance Due Date Last [...] Results * Referral to Sleep Medicine (07/16/2024) [facility] OUTPATIENT REFERRAL ORDERABLES Final Result * (ABNORMAL) Lipid Panel, Standard (10/18/2022 10:00 AM EDT) Cholesterol, Total 183 (<200) MG/DL [facility] Triglyceride (mg/dL) in Serum/Plasma 144 (<150) MG/DL [facility] HDL Cholesterol 39(L) (>39) MG/DL [facility] LDL Cholesterol, Calculated 115 (0-130) MG/DL [facility] Non HDL Chol. (LDL+VLDL) 144 (<160) MG/DL [facility] Comment: Testing performed or reported by [facility], a Service of [facility], [address] [place] [address] Paco Brock MD, Associate Merchant [facility]# [id number] 10/18/2022 10:0 0 AM EDT 10/18/2022 10:01 AM EDT Denise Coyne SEPTIC TANK SERVICER LAB BLOOD ORDERABLES Neha l Result [facility] [address] [address] from Last 3 Months or Most Recently Relevant to Health Maintenance Insurance [facility] C3 DENTAL-[facility] MEDICAID STAND ADULT DENTAL - HSN FULL (MEDICAID) Care Teams Claims Correspondence Clerk Relationship Specialty Start Date End Date Mai Garcia DO [address] [place] [address] PCP - General Family Medicine 04/07/23 Judy Duque Health Navigator Financial Counseling and Assistance Services 02/19/23 Weston Millan Community Health Worker 03/03/23
--- OUTSIDE RECORDS SUMMARY | 2024-09-13 18:28 | XMS_ITS | Encounter Summary ---
Author Organization [employer] Address [address] [facility] [address] [facility] [address] 7t [place] [address] Care Team Providers Care Student Name Role Phone Neto Judy Unavailable Unavailable Weston Millan Unavailable Unavailable Mai Garcia DO Primary Care Provider [phone] Encounter Details Date Type Department Care Team (Late st Contact Info) Description 04/22/2024 Orders Only [facility] [address] [place] [address] Mai Garcia DO [address] [place] [address] Social History Tobacco Use Types Packs/Day Years [...] 1:45 PM EDT Office Visit [facility] MEDICAL [address] [place] [address] Mai Garcia DO [address] [place] [address] 03/24/2025 3:00 PM EDT Office Visit [facility] DENTAL [address] [place] [address] Carmela Ha documented as of this encounter [...] on filedocumented in this encounter Care Teams Student Relationship Specialty Start Date End Date Mai Garcia DO [address] [place] [address] PCP - General Family Medicine 04/07/23 Judy Duque Health Navigator Financial Counseling and Assistance Services 02/19/23 Weston Millan Community Health Worker 03/03/23 documented as of this encounter
--- OUTSIDE RECORDS SUMMARY | 2024-09-13 18:28 | XMS_ITS | Encounter Summary ---
Author Organization [employer] Address [address] [facility] [address] 7t [place] [address] Care Team Providers Care Construction Area Manager Name Role Phone Neto Judy Unavailable Unavailable Weston Millan Unavailable Unavailable Mai Garcia DO Primary Care Provider [phone] Encounter Details Date Type Department Care Team (Late st Contact Info) Description 04/05/2024 Orders Only [facility] [address] [place] [address] Mai Garcia DO [address] [place] [address] Social History Tobacco Use Types Packs/Day Years [...] PM EDT Office Visit [facility] MEDICAL [address] [place] [address] Mai Garcia DO [address] [place] [address] 03/24/2025 3:00 PM EDT Office Visit [facility] DENTAL [address] [place] [address] Carmela Ha documented as of this encounter Procedures Procedure Name Priority Date/Time Associated Diagnosis Comments HOME SLEEP TEST Routine 03/18/2024 11:32 AM EDT documented in this encounter Results * Home sleep test (03/18/2024 11:32 AM EDT) Mai Garcia DO SLEEP [facility]ENTER ORDERABLES Final Result documented in this encounter Visit Diagnoses Not on filedocumented in this encounter Care Teams Construction Area Manager Relationship Specialty Start Date End Date Mai Garcia DO [address] [place] [address] PCP - General Family Medicine 04/07/23 Judy Duque Health Navigator Financial Counseling and Assistance Services 02/19/23 Weston Millan Community Health Worker 03/03/23 documented as of this encounter
--- OUTSIDE RECORDS SUMMARY | 2024-09-13 18:28 | XMS_ITS | Encounter Summary ---
Author Organization [employer] Address [address] [place] [address] 7 [place] [address] Care Team Providers Care Report Writer Name Role Phone Denise Coyne Primary Care Provider Un available Judy Duque Unavailable Unavailable Weston Millan Unavailable Unavailable Mai Garcia DO Primary Care Provider [phone] Encounter Details Date Type Department Care Team [...] Description 12/06/2024 1:45 PM EDT Office Visit [facility] MEDICAL [address] [place] [address] Mai Garcia DO [address] [place] [address] 03/24/2025 3:00 PM EDT Office Visit [facility] DENTAL [address] [place] [address] Carmela Ha documented as of this encounter Visit Diagnoses Not on filedocumented in this encounter Care Teams Report Writer Relationship Specialty Start Date End Date Denise Coyne FNP PCP - General Family Medicine 06/17/22 04/06/23 Mai Garcia DO [address] [place] [address] PCP - General Family Medicine 04/07/23 Judy Duque Health Navigator Financial Counseling and Assistance Services 02/19/23 Weston Millan Community Health Worker 03/03/23 documented as of this encounter
--- OUTSIDE RECORDS SUMMARY | 2024-09-13 18:28 | XMS_ITS | Encounter Summary ---
Author Organization [employer] Address [address] [facility] [address] 7t [place] [address] Care Team Providers Care Frame Aligner Name Role Phone Neto Judy Unavailable Unavailable Weston Millan Unavailable Unavailable Mai Garcia DO Primary Care Provider [phone] Encounter Details Date Type Department Care Team (Late st Contact Info) Description 06/04/2024 Orders Only [facility] [address] [place] [address] Mai Garcia DO [address] [place] [address] Social History Tobacco Use Types Packs/Day Years [...] [facility] MEDICAL [address] [place] [address] Mai Garcia DO [address] [place] [address] 03/24/2025 3:00 PM EDT Office Visit [facility] DENTAL [address] [place] [address] Carmela Ha documented as of this encounter [...] on filedocumented in this encounter Care Teams Frame Aligner Relationship Specialty Start Date End Date JoseNegritaMai, [address] [place] [address] PCP - General Family Medicine 04/07/23 Judy Duque Health Navigator Financial Counseling and Assistance Services 02/19/23 Weston Millan Community Health Worker 03/03/23 documented as of this encounter
[2024-09-23 02:18] LABS: Stone Source KIDSTS1907A
== END 2024-09-13 15:40 | disposition home or self-care (01) ==
LOC: HO.LNP 15:39
PROVIDERS: Visit Provider Urology
DX: N20.0 Calculus of kidney (principal)
CPT/HCPCS: 82365; 88300; 99212

== ENCOUNTER 2024-09-13 15:39 | Outpatient (AMB) | payer MEDICAID, SELFPAY ==
--- NOTE | 2024-09-13 15:42 | MHC.OFFVIS ---
Intake Visit Reasons: ESWL, follow up/KUB Intake Note: Patient is Present for follow up/KUB/ESWL Urology Medication: Vitamin B6 Antibiotic Allergies:None Blood Thinners: None Green Building Materials Distributor Required: No Accompanied by: Spouse Allergies oxycodone [OXYCODONE] Allergy (Unknown, Verified 09/13/24 15:42) ITCHY HPI Comments Details: 09/13/24--38-year-old male presenting with nephrolithiasis management. Previous imaging confirmed the presence of multiple renal calculi in the right kidney, with a significant occurrence of a 10 mm stone treated on August 04, 2024 using extracorporeal shock wave lithotripsy (ESWL). Subsequent imaging and urine studies confirmed residual stones in both kidneys, with a 5 mm stone in the left side necessitating further intervention. I reviewed and discussed the 24-hour urine collection which demonstrated appropriate hydration levels with urinary calcium being normal and urinary oxalate at the upper end of normal. The dietary recommendations emphasized moderation in high-oxalate foods, calcium consumption from dairy, and sodium intake reduction to mitigate further stone formation risks. The patient has been continuing on vitamin B6 supplementation to aid in managing the urinary oxalate level. Results - Imaging: Renal ultrasound revealed multiple residual stones in the right kidney as well as a 5 mm stone in the left kidney. - Labs: 24-hour urinary collection showed normal calcium (150 mg) and high-normal oxalate levels. 06/07/24 Noah 38 year old, is here for follow-up, he states he sent his 24 hour urine collection off this morning; he had a CT stone protocol there were bilateral stones largest in the right kidney 1 cm. CTAP -05/27/24-KIDNEYS AND URETERS: The kidneys are normal in size, shape, and attenuation. There is bilateral nephrolithiasis. The largest radiopaque calculi upper pole right kidney measures 1 cm. There is no calyx cases or hydronephrosis seen. ESWL. Discussed risks to include but not limited to, blood in the urine, bruising to the skin, kidney hematoma, possible need for another procedure if a stone fragment obstructs the ureter while passing, possible need to repeat procedure if stone is not completely fragmented. Bilateral kidney stones, stone burden right greater than left. Right ESWL 01/16/24--Recent retroperitoneal ultrasound results reviewed with the patient today increase in stone burden bilateral stones visualized. Noah was in the emergency room at [facility] for left flank pain, he was given Flomax and thinks he passed a stone from the left kidney because the pain has resolved. Stressed the importance of continuing to drink plenty of water daily. Continue adding 1 oz of lemon juice to water daily. Cont vitamin B6. Discussed further evaluation with 24 hour urine collection we will check CT stone protocol. 07/14/23--Noah is a very pleasant 37-year-old male patient of Dr. Taylor. He presents to the office today for follow-up. Of note, patient was seen approximately 1 month ago as a new patient for nephrolithiasis at which time a retroperitoneal ultrasound was ordered for further assessment evaluation. These results reviewed with the patient today. Right kidney with no lesions or hydronephrosis. Nonobstructing stones measuring up to 4 mm. Left kidney with no calculi, lesions, and or hydronephrosis. The bladder is well distended and normal. Bilateral ureteral jets are demonstrated. Pre void bladder volume is approximately 150 mL. Postvoid bladder volume is approximately 10 mL. Prostate is within normal size measuring approximately 12 mL. Patient reports pain had been experiencing approximately 2 months ago when he seeked emergency room care at [facility] has since subsided. Discussed at length potential causes of nephrolithiasis. He does have a longstanding history of nephrolithiasis requiring surgical intervention with a ureteroscopy and stent placement in the past with Dr. Lazar. He otherwise currently denies any bothersome urinary issues or concerns. He does endorse to not be drinking plenty of water daily. When asked he denies urinary urgency, urinary frequency, incontinence, nocturia, hematuria, dysuria, foul smelling urine, changes to urinary stream, flank pain, fever, and or chills. He is happy with his current voiding parameters. [facility] Social History Patient Tobacco Use Status: Never used Tobacco Review of Systems Const All systems reviewed & are unremarkable except as noted in HPI and below Reports no additional complaints Eyes Reports no additional complaints ENT Reports no additional complaints Card Reports no additional complaints Resp Reports no additional complaints GI Reports no additional complaints Reports as per HPI Musc Reports no additional complaints Skin/Breast Reports system reviewed and no additional complaints, except as documented Neuro Reports no additional complaints Psych Reports no additional complaints Endo Reports no additional complaints Maciel/Lymph Reports no additional complaints Aller/Immun Reports no additional complaints Assessment & Plan Assessment & Plan (1) Nephrolithiasis: Code(s): N20.0 - Calculus of kidney Category: Medical (2) Bilateral kidney stones: Code(s): N20.0 - Calculus of kidney Category: Medical Plan Plan - Plans for nephrolithiasis include scheduling shockwave lithotripsy for the 5 mm stone in the left kidney - Continue vitamin B6 supplementation as instructed. - Limit intake of high-oxalate foods such as green leafy vegetables, nuts, and berries. - Maintain appropriate hydration with over 2 liters of water daily. Orders: Orders Surgical 09/13/24 N20.0 - Calculus of kidney Patient Instructions: The patient had an opportunity to ask questions regarding treatment plan. The patient expressed understanding and agreement with the above treatment plan. The patient is aware they should contact our office by phone for worsening of their current condition or the appearance of new symptoms. Compliance is encouraged with any medications and followup testing that is ordered. It is a privilege to be allowed the opportunity to participate in the urologic care of your patient. If you have any questions or concerns regarding treatment for the above conditions please do not hesitate to contact me. The office telephone contact is [phone]. This note is constructed in part using voice recognition software. While every effort has been made to ensure accuracy case finishing machine adjuster errors may have been included. Yours sincerely, Regina Bills MD Scribe Plan - Not visible on output: Patient was informed and verbally consented to the use of an ambient scribe for clinic note documentation during this visit. Coding Level of Care Code Est Pt Level 4 (77727) Diagnoses Nephrolithiasis N20.0 Bilateral kidney stones N20.0
--- OUTSIDE RECORDS SUMMARY | 2024-09-13 18:03 | XMS_ITS | Encounter Summary ---
Author Organization [employer] Address [address] [place] [address] Care Team Providers Care Nursing Education Specialist Name Role Phone Neto Judy Unavailable Unavailable Weston Millan Unavailable Unavailable Mai Garcia DO Primary Care Provider [phone] Encounter Details Date Type Department Care Team (Late st Contact Info) Description 06/04/2024 Orders Only [facility] [address] [place] [address] Mai Garcia DO [address] [place] [address] Social History Tobacco Use Types Packs/Day Years [...] Description 12/06/2024 1:45 PM EDT Office Visit [facility] MEDICAL [address] [place] [address] Mai Garcia DO [address] [place] [address] 03/24/2025 3:00 PM EDT Office Visit [facility] DENTAL [address] [place] [address] Carmela Ha documented as of this encounter [...] on filedocumented in this encounter Care Teams Nursing Education Specialist Relationship Specialty Start Date End Date JoseNegritaMai, [address] [place] [address] PCP - General Family Medicine 04/07/23 Judy Duque Health Navigator Financial Counseling and Assistance Services 02/19/23 Weston Millan Community Health Worker 03/03/23 documented as of this encounter
--- OUTSIDE RECORDS SUMMARY | 2024-09-13 18:03 | XMS_ITS | Encounter Summary ---
Author Organization [email or web address] Address [address] [place] [address] Care Team Providers Care Aircraft Lay Out Worker Name Role Phone Neto Judy Unavailable Unavailable Weston Millan Unavailable Unavailable Mai Garcia DO Primary Care Provider [phone] Encounter Details Date Type Department Care Team (Late st Contact Info) Description 05/05/2023 Orders Only [facility] [address] [place], [place] [id number] Pcp, Hussein Unassigned Social History Tobacco Use [...] Description 12/06/2024 1:45 PM EDT Office Visit [facility] MEDICAL [address] [place] [address] Mai Garcia DO [address] [place] [address] 03/24/2025 3:00 PM EDT Office Visit [facility] DENTAL [address] [place] [address] Carmela Ha documented as of this encounter Procedures Procedure Name Priority Date/Time Associated Diagnosis Comments QUANTIFERON TB GOLD Routine 04/30/2023 documented in this encounter Results * QuantiFERON TB Gold (04/30/2023) Blood Venous blood specimen / Unknown [facility] Unassigned Pcp LAB BLOOD ORDERABLES Vasiliy francis Result - Final documented in this encounter Visit Diagnoses Not on filedocumented in this encounter Care Teams Aircraft Lay Out Worker Relationship Specialty Start Date End Date Mai Garcia DO [address] [place] [address] PCP - General Family Medicine 04/07/23 Judy Duque Health Navigator Financial Counseling and Assistance Services 02/19/23 Weston Millan Community Health Worker 03/03/23 documented as of this encounter
--- OUTSIDE RECORDS SUMMARY | 2024-09-13 18:03 | XMS_ITS | Encounter Summary ---
Author Organization [employer] Address [address] [place] [address] Care Team Providers Care Rim Buster Name Role Phone Neto Judy Unavailable Unavailable Weston Millan Unavailable Unavailable Mai Garcia DO Primary Care Provider [phone] Encounter Details Date Type Department Care Team (Late st Contact Info) Description 04/22/2024 Orders Only [facility] [address] [place] [address] Mai Garcia DO [address] [place] [address] Social History Tobacco Use Types Packs/Day Years [...] Description 12/06/2024 1:45 PM EDT Office Visit [facility] MEDICAL [address] [place] [address] Mai Garcia DO [address] [place] [address] 03/24/2025 3:00 PM EDT Office Visit [facility] DENTAL [address] [place] [address] Carmela Ha documented as of this encounter [...] on filedocumented in this encounter Care Teams Rim Buster Relationship Specialty Start Date End Date Mai Garcia DO [address] [place] [address] PCP - General Family Medicine 04/07/23 Judy Duque Health Navigator Financial Counseling and Assistance Services 02/19/23 Weston Millan Community Health Worker 03/03/23 documented as of this encounter
--- OUTSIDE RECORDS SUMMARY | 2024-09-13 18:03 | XMS_ITS | Encounter Summary ---
Author Organization [employer] Address [address] [place] [address] 7 [place] [address] Care Team Providers Care Spring Assembler Supervisor Name Role Phone Denise Coyne Primary Care Provider Un available Judy Duque Unavailable Unavailable Weston Millan Unavailable Unavailable Mai Garcia DO Primary Care Provider [phone] Encounter Details Date Type Department Care Team [...] Description 12/06/2024 1:45 PM EDT Office Visit [facility] MEDICAL [address] [place] [address] Mai Garcia DO [address] [place] [address] 03/24/2025 3:00 PM EDT Office Visit [facility] DENTAL [address] [place] [address] Carmela Ha documented as of this encounter Visit Diagnoses Not on filedocumented in this encounter Care Teams Spring Assembler Supervisor Relationship Specialty Start Date End Date Denise Coyne FNP PCP - General Family Medicine 06/17/22 04/06/23 Mai Garcia DO [address] [place] [address] PCP - General Family Medicine 04/07/23 Judy Duque Health Navigator Financial Counseling and Assistance Services 02/19/23 Weston Millan Community Health Worker 03/03/23 documented as of this encounter
--- OUTSIDE RECORDS SUMMARY | 2024-09-13 18:03 | XMS_ITS | Encounter Summary ---
Author Organization [employer] Address [address] [place] [address] Care Team Providers Care Supervisor Paint Roller Covers Name Role Phone Neto Judy Unavailable Unavailable Weston Millan Unavailable Unavailable Mai Garcia DO Primary Care Provider [phone] Encounter Details Date Type Department Care Team (Late st Contact Info) Description 05/01/2023 Orders Only [facility] [address] [place] [address] Mai Garcia DO [address] [place] [address] Social History Tobacco Use Types Packs/Day Years [...] t he electric, gas, oil or water [employer] threatened to shut off services in your [...] Visit [facility] MED[facility] [address] [place] [address] Mai Garcia DO [address] [place] [address] 03/24/2025 3:00 PM EDT Office Visit [facility] DENT[facility] [address] [place] [address] Carmela Ha documented as of this encounter [...] on filedocumented in this encounter Care Teams Supervisor Paint Roller Covers Relationship Specialty Start Date End Date Mai Garcia DO [address] [place] [address] PCP - General Family Medicine 04/07/23 Judy Duque Health Navigator Financial Counseling and Assistance Services 02/19/23 Weston Millan Community Health Worker 03/03/23 documented as of this encounter
--- OUTSIDE RECORDS SUMMARY | 2024-09-13 18:03 | XMS_ITS | Encounter Summary ---
Author Organization [employer] Address [address] [place] [address] Care Team Providers Care Rate Clerk Passenger Name Role Phone Neto Judy Unavailable Unavailable Weston Millan Unavailable Unavailable Mai Garcia DO Primary Care Provider Encounter Details Date Type Department Care Team (Late st Contact Info) Description 04/05/2024 Orders Only [facility] [address] [place] [address] Mai Garcia DO [address] [place] [address] Social History Tobacco Use Types Packs/Day Years [...] 12/06/2024 1:45 PM EDT Office Visit [facility] MEDICAL [address] [place] [address] Mai Garcia DO [address] [place] [address] 03/24/2025 3:00 PM EDT Office Visit [facility] DENTAL [address] [place] [address] Carmela Ha documented as of this encounter Procedures Procedure Name Priority Date/Time Associated Diagnosis Comments HOME SLEEP TEST Routine 03/18/2024 11:32 AM EDT documented in this encounter Results * Home sleep test (03/18/2024 11:32 AM EDT) Mai Garcia DO [facility]ENTER ORDERABLES Final Result documented in this encounter Visit Diagnoses Not on filedocumented in this encounter Care Teams Rate Clerk Passenger Relationship Specialty Start Date End Date Mai Garcia DO [address] [place] [address] PCP - General Family Medicine 04/07/23 Judy Duque Health Navigator Financial Counseling and Assistance Services 02/19/23 Weston Millan Community Health Worker 03/03/23 documented as of this encounter
--- OUTSIDE RECORDS SUMMARY | 2024-09-13 18:03 | XMS_ITS | Encounter Summary ---
Author Organization [employer] Address [address] [place] [address] [address] [place] [address] Care Team Providers Care Lastex Operator Name Role Phone Denise Coyne Primary Care Provider Un available Judy Duque Unavailable Unavailable Weston Millan Unavailable Unavailable Mai Garcia DO Primary Care Provider [phone] Encounter Details Date Type Department Care Team [...] Description 12/06/2024 1:45 PM EDT Office Visit [facility] MEDICAL [address] [place] [address] Mai Garcia DO [address] [place] [address] 03/24/2025 3:00 PM EDT Office Visit [facility] DENTAL [address] [place] [address] Carmela Ha documented as of this encounter Visit Diagnoses Not on filedocumented in this encounter Care Teams Lastex Operator Relationship Specialty Start Date End Date Denise Coyne FNP PCP - General Family Medicine 06/17/22 04/06/23 Mai Garcia DO [address] [place] [address] PCP - General Family Medicine 04/07/23 Judy Duque Health Navigator Financial Counseling and Assistance Services 02/19/23 Weston Millan Community Health Worker 03/03/23 documented as of this encounter
--- OUTSIDE RECORDS SUMMARY | 2024-09-13 18:03 | XMS_ITS | Encounter Summary ---
Author Organization [employer] Address [address] [place] [address] Care Team Providers Care Ramp Flight Attendant Name Role Phone Neto Judy Unavailable Unavailable Weston Millan Unavailable Unavailable Mai Garcia DO Primary Care Provider [phone] Encounter Details Date Type Department Care Team (Late st Contact Info) Description 08/01/2023 Orders Only [facility] [address] [place] [address] Mai Garcia DO [address] [place] [address] Social History Tobacco Use Types Packs/Day Years [...] t he electric, gas, oil or water [employer] threatened to shut off services in your [...] PM EDT Office Visit [facility] MEDICAL [address] [place] [address] Mai Garcia DO [address] [place] [address] 03/24/2025 3:00 PM EDT Office Visit [facility] DENTAL [address] [place] [address] Carmela Ha documented as of this encounter [...] on filedocumented in this encounter Care Teams Ramp Flight Attendant Relationship Specialty Start Date End Date Mai Garcia DO [address] [place] [address] PCP - General Family Medicine 04/07/23 Judy Duque Health Navigator Financial Counseling and Assistance Services 02/19/23 Weston Millan Community Health Worker 03/03/23 documented as of this encounter
--- OUTSIDE RECORDS SUMMARY | 2024-09-13 18:03 | XMS_ITS | Encounter Summary ---
Author Organization [employer] Address [address] [place] [address] Care Team Providers Care Industrial Tech Instructor Name Role Phone Neto Judy Unavailable Unavailable Weston Millan Unavailable Unavailable Mai Garcia DO Primary Care Provider [phone] Encounter Details Date Type Department Care Team (Late st Contact Info) Description 02/17/2024 Orders Only [facility] [address] [place] [address] Mai Garcia DO [address] [place] [address] Social History Tobacco Use Types Packs/Day Years [...] 1:45 PM EDT Office Visit [facility] MEDICAL [address] [place] [address] Mai Garcia DO [address] [place] [address] 03/24/2025 3:00 PM EDT Office Visit [facility] DENTAL [address] [place] [address] Carmela Ha documented as of this encounter Procedures Procedure Name Priority Date/Time Associated Diagnosis Comments SED RATE BY MODIFIED WESTERGREN Routine 02/12/2024 7:33 AM EDT COMPREHENSIVE METABOLIC PANEL Routine 02/12/2024 7:32 AM EDT documented in this encounter Results * Sed Rate by Modified Westergren (02/12/2024 7:33 AM EDT) Blood Venous blood specimen / Unknown Mai [facility] LAB BLOOD ORDERABLES Final Res ult * Comprehensive Metabolic Panel (02/12/2024 7:32 AM EDT) Blood Venous blood specimen / Unknown [facility] LAB BLOOD ORDERABLES Final Res ult documented in this encounter Visit Diagnoses Not on filedocumented in this encounter Care Teams Industrial Tech Instructor Relationship Specialty Start Date End Date JoseMai [address] [place] [address] PCP - General Family Medicine 04/07/23 Judy Duque Health Navigator Financial Counseling and Assistance Services 02/19/23 Weston Millan Community Health Worker 03/03/23 documented as of this encounter
--- OUTSIDE RECORDS SUMMARY | 2024-09-13 18:03 | XMS_ITS | Encounter Summary ---
Author Organization [email or web address] Address [address] [place] [address] Care Team Providers Care Notching Press Operator Name Role Phone Neto Judy Unavailable Unavailable Weston Millan Unavailable Unavailable Mai Garcia DO Primary Care Provider [phone] Encounter Details Date Type Department Care Team (Late st Contact Info) Description 12/03/2023 Orders Only [facility] MEDICAL [address] [place] [address] Provider, MD Michael Social History Tobacco Use [...] 12/06/2024 1:45 PM EDT Office Visit [facility] MEDICAL [address] [place] [address] Mai Garcia DO [address] [place] [address] 03/24/2025 3:00 PM EDT Office Visit [facility] DENTAL [address] [place] [address] Carmela Ha documented as of this encounter [...] on filedocumented in this encounter Care Teams Notching Press Operator Relationship Specialty Start Date End Date Mai Garcia DO [address] [place] [address] PCP - General Family Medicine 04/07/23 Judy Duque Health Navigator Financial Counseling and Assistance Services 02/19/23 Weston Millan Community Health Worker 03/03/23 documented as of this encounter
--- OUTSIDE RECORDS SUMMARY | 2024-09-13 18:03 | XMS_ITS | Clinical Summary ---
Author Organization [employer] Address [address] [facility] 7t [place] [address] Care Team Providers Care Smudger Name Role Phone NetoJudy Unavailable Unavailable Weston Millan Unavailable Unavailable Mai Garcia DO Primary Care Provider [phone] Allergies Active Allergy Reactions Criticality Noted Date [...] Overview (06/23/2023): With biceps tendinitis Following with [facility], planning for arthroscopic surgery [...] other sleep/wake disorder. Refer to sleep medicine director long term care (current) use of n on-steroidal anti-inflammatories (nsaid) [...] left shoulder 2021 Overview (04/16/2023): Following with [facility] and may require surgery. [...] writing. Provider: Mima Perdomo MD Patient: Noah Guilluame : 1985 Date: 08/09/2021 Vitamin D deficiency 04/30/2021 Overview (06/19/2022): Last Assessment & Plan: Continue 79584 units Vit D daily Cervical radiculopathy 11/27/2020 [...] of this 31-minute visit was spent in [id number] conversation with the patient coordinating my care [...] Description 08/30/2024 9:00 AM EDT Office Visit [facility] MEDICAL [address] [place] [address] Annamarie Ferreira MD Chronic left shoulder pain (Primary Dx); Rotator cuff arthropathy of left shoulder; Osteoarthritis of spine with radiculopathy, cervical region; Other chronic pain 08/26/2024 2:00 PM EDT Office Visit [facility] DENTAL [address] [place] [address] Enmanuel Palacios LLD 08/26/2024 9:20 AM EDT Office Visit [facility] DENTAL [address] [place] [address] Carmela Ha Dental calculus (Primary Dx); Accretions on teeth; Encounter for dental examination; Stage 3 grade B localized periodontitis per AAP/EFP 2017 classification; Stage 2 grade B localized periodontitis per AAP/EFP 2017 classification 08/13/2024 Telephone [facility] OPTOMETRY [address] [place] [address] Reynold Farr CMA Glasses rx 08/13/2024 Population Health Risk Score [facility] (C3) Department [address] [place] [phone] Provider, Population Health Generic 06/15/2024 Telephone [facility] MEDICAL [address] [place] [address] Mai Garcia DO Leg Swelling; Leg Pain [...] Visit [facility] MEDICAL [address] [place] [address] King Mai [address] [place] [address] 03/24/2025 3:00 PM EDT Office Visit [facility] DENTAL [address] [place] [address] Carmela Ha Health Maintenance Due Date Last [...] Results * Referral to Sleep Medicine (07/16/2024) [facility] OUTPATIENT REFERRAL ORDERABLES Final Result * (ABNORMAL) Lipid Panel, Standard (10/18/2022 10:00 AM EDT) Cholesterol, Total 183 (<200) MG/DL [facility] Triglyceride (mg/dL) in Serum/Plasma 144 (<150) MG/DL [facility] HDL Cholesterol 39(L) (>39) MG/DL [facility] LDL Cholesterol, Calculated 115 (0-130) MG/DL [facility] Non HDL Chol. (LDL+VLDL) 144 (<160) MG/DL [facility] Comment: Testing performed or reported by [facility], a Service of [facility], [address] [place] [id number] Paco Brock MD, Switchboard Operator Helper [facility]# [id number] 10/18/2022 10:0 0 AM EDT 10/18/2022 10:01 AM EDT Denise Coyne NURSING MANAGER LAB BLOOD ORDERABLES Neha l Result [facility] [address] [address] from Last 3 Months or Most Recently Relevant to Health Maintenance Insurance [facility] C3 D[facility] MEDICAID STAND ADULT DENTAL - HSN FULL (MEDICAID) Care Teams Smudger Relationship Specialty Start Date End Date Mai Garcia DO [address] [place] [address] PCP - General Family Medicine 04/07/23 Judy Duque Health Navigator Financial Counseling and Assistance Services 02/19/23 Weston Millan Community Health Worker 03/03/23
== END 2024-09-13 16:01 | disposition home or self-care (01) ==
LOC: HO.HUSH 15:39
PROVIDERS: Visit Provider Urology
DX: N20.0 Calculus of kidney (principal)
CPT/HCPCS: 99024

== ENCOUNTER 2024-12-01 06:52 | Day surgery (SDC) | payer MEDICAID, SELFPAY ==
--- OUTSIDE RECORDS SUMMARY | 2024-11-04 08:30 | XMS_ITS | Encounter Summary ---
Author Organization [employer] Address [address] [facility] 7t [place] [address] Care Team Providers Care Foil Wrapper Name Role Phone Neto Judy Unavailable Unavailable Weston Millan Unavailable Unavailable Mai Garcia DO Primary Care Provider [phone] Encounter Details Date Type Department Care Team (Late st Contact Info) Description 05/01/2023 Orders Only [facility] [address] [place] [address] Mai Garcia DO [address] [place] [address] Social History Tobacco Use Types Packs/Day Years [...] t he electric, gas, oil or water [employer] threatened to shut off services in your [...] 12/06/2024 1:45 PM EDT Office Visit [facility] MEDICAL [address] [place] [address] Mai Garcia DO [address] [place] [address] 03/24/2025 3:00 PM EDT Office Visit [facility] DENTAL [address] [place] [address] Carmela Ha documented as of this encounter [...] on filedocumented in this encounter Care Teams Foil Wrapper Relationship Specialty Start Date End Date Mai Garcia DO [address] [place] [address] PCP - General Family Medicine 04/07/23 Judy Duque Navigator Financial Counseling and Assistance Services 02/19/23 Weston Millan Community Health Worker 03/03/23 documented as of this encounter
[2024-11-29 11:59] VITALS: BMI 33.5
--- NOTE | 2024-11-30 10:02 | HO.ANESPROP2 ---
Documented by User: Jane Calles NP 11/30/24 10:03 HPI - Anesthesia Eval Consult details Narrative: 39yo M for Left Lithotripsy ESW s/p right side 07/2024 with MAC PMF Active Problems Active Problems: All Active Problems Left flank pain (Acute) Bilateral kidney stones (Acute) Nephrolithiasis (Acute) Past Medical History Medical History (Updated 11/29/24 @ 12:02 by Radha Horner RN) GERD (gastroesophageal reflux disease) Renal calculi Family History Family history of problems with anesthesia: No Surgical History Surgical History (Updated 11/29/24 @ 11:58 by Radha Horner RN) Hx of lithotripsy History of Problems with Anesthesia: No Social History Social History Patient Tobacco Use Status: Former Tobacco user Have you been hit, kicked, punched, or otherwise hurt by someone within the past year? If so, by whom?: No Are you DNR?: No Advance Directives: No Advance Directives Information Provided: Yes Meds Allergies Allergy/AdvReac Type Severity Reaction Status Date / Time No Known Allergies Allergy Verified 12/01/24 07:32 Home Medications ?Medication ?Instructions ?Recorded ?Confirmed ?Last Taken ?Type clotrimazole-betamethasone 1 appl topical BID 06/13/23 06/07/24 Unknown History %-0.05 % topical cream diclofenac sodium 1 % topical gel g topical DIRECTED 06/13/23 06/07/24 Unknown History etanercept 50 mg/mL (1 mL) 50 mg subcut QWEEK 06/13/23 08/04/24 Unknown History subcutaneous pen injector (Enbrel [employer]) fluocinolone acetonide oil 0.01 % drp otic (ears) 06/13/23 06/07/24 Unknown History ear drops gabapentin 600 mg tablet 600 mg PO TID PRN Pain 06/13/23 08/04/24 Unknown History ibuprofen 600 mg tablet 600 mg PO Q6H PRN Pain 06/13/23 08/04/24 11/24/24 History omeprazole 20 mg capsule,delayed 20 mg PO QAM 06/13/23 08/04/24 12/01/24 History release brinzolamide 1 % eye 1 drp ophthalmic (eye) TID 09/13/24 Unknown History drops,suspension (Azopt) Exam Height,Weight and Vital Signs: Height 5 ft 2 in Weight 83 kg Assessment and Plan Assessment Anesthesia Assessment: Chart Reviewed Final Anesthetic Review Family History of Problems with Anesthesia: No History of Problems with Anesthesia: No Documented by User: Larry Zuleta MD 12/01/24 08:56 PMF Past Medical History Medical History (Updated 11/29/24 @ 12:02 by Radha Horner RN) GERD (gastroesophageal reflux disease) Renal calculi Surgical History Surgical History (Updated 11/29/24 @ 11:58 by aRdha Horner RN) Hx of lithotripsy Social History Social History Patient Tobacco Use Status: Former Tobacco user Have you been hit, kicked, punched, or otherwise hurt by someone within the past year? If so, by whom?: No Are you DNR?: No Advance Directives: No Advance Directives Information Provided: Yes Meds Allergies Allergy/AdvReac Type Severity Reaction Status Date / Time No Known Allergies Allergy Verified 12/01/24 07:32 Home Medications ?Medication ?Instructions ?Recorded ?Confirmed ?Last Taken ?Type clotrimazole-betamethasone 1 appl topical BID 06/13/23 06/07/24 Unknown History %-0.05 % topical cream diclofenac sodium 1 % topical gel g topical DIRECTED 06/13/23 06/07/24 Unknown History etanercept 50 mg/mL (1 mL) 50 mg subcut QWEEK 06/13/23 08/04/24 Unknown History subcutaneous pen injector (Enbrel [employer]) fluocinolone acetonide oil 0.01 % drp otic (ears) 06/13/23 06/07/24 Unknown History ear drops gabapentin 600 mg tablet 600 mg PO TID PRN Pain 06/13/23 08/04/24 Unknown History ibuprofen 600 mg tablet 600 mg PO Q6H PRN Pain 06/13/23 08/04/24 11/24/24 History omeprazole 20 mg capsule,delayed 20 mg PO QAM 06/13/23 08/04/24 12/01/24 History release brinzolamide 1 % eye 1 drp ophthalmic (eye) TID 09/13/24 Unknown History drops,suspension (Azopt) Exam Airway Mallampati Class: II TM Dist: <=3cm Neck ROM: Full Loose/Missing/Broken Teeth: No Heart: ok Lungs: ok Assessment and Plan Assessment Anesthesia Assessment: Anesthesia Plan Discussed Final Anesthetic Review NPO: Yes ASA Class: II Final Preanesthetic Review: No Changes in Pt Med Stat, Meds/Allgs Chart Reviewed, Consent Obtained/Reviewed and Anes Risks/Benef Reviewed Patient Risk: Intermediate Procedure Risk: Low Anesthetic Plan Anesthetic Plan: GA and Agree w/ Assess. and Plan Disposition: Standard PACU
--- NOTE | ~2024-12-01 | XR_ITS ---
EXAMINATION: XR ABDOMEN 1 VIEW (KUB) HISTORY: preESWL-left COMPARISON: Comparison is made with the prior examination dated 08/04/2024. FINDINGS: Two supine views of the abdomen are submitted. The bowel gas pattern is unremarkable, without evidence of mechanical obstruction. There are multiple calculi overlying the lower pole of the right renal shadow measuring up to 6 mm in size. No calculi are seen on the left. There are no abnormal soft tissue masses. The bones are intact. XR/XR KUB IMPRESSION: Right nephrolithiasis as described. Electronically signed by: Chase Goff MD 12/01/2024 11:01 AM EDT
[2024-12-01 07:14] VITALS: BP 120/88; PULSE 70; RESP 18; TEMP 36.9; O2SAT 96; BMI 34.3
[2024-12-01] MEDS: Lactated Ringers 1,000 ML 100 ML IVCONT (07:29)
--- NOTE | 2024-12-01 08:31 | PC.NURSE ---
one liter of fluid completed in preop
--- NOTE | 2024-12-01 08:48 | MHC.SHP ---
Pre-Procedural Eval Section A - 24 Hr Update-Section A only Date of Service: 12/01/24 The patient is an INPATIENT: No The patient has been examined within 24 hours of the surgical procedure. The History & Physical has been completed within 30 days and I have reviewed it.: Yes Section B - Complete if H&P > 30 days Chief Complaint: Calculus of kidney, left Allergies: Allergies Allergy/AdvReac Type Severity Reaction Status Date / Time No Known Allergies Allergy Verified 12/01/24 07:32 Plan Diagnosis/Plan: Unchanged I have reviewed the history and physical and performed a pertinent physical examination on my patient. No changes have occurred unless specified. Left ESWL. Discussed risks to include but not limited to, blood in the urine, bruising to the skin, kidney hematoma, possible need for another procedure if a stone fragment obstructs the ureter while passing, possible need to repeat procedure if stone is not completely fragmented. Time Spent With Patient Time: Total time managing care of this patient today ____ minutes.
--- NOTE | 2024-12-01 08:49 | W.PM.OPN ---
Operative Note Operative Note Date of Service: 12/01/24 Narrative: PreOperative Diagnosis:? ? Left Renal stone Post Operative Diagnosis:?Left? Renal stone Procedure:?Left? ESWL Surgeon:?Dr Regina Bills Anesthesia:? General Indications for procedure: The patient understands there is a risk of bruising or hematoma to the kidney, infection, and stone migration following the procedure and subsequent intervention may be required.? - Imaging 5 x 4 mm stone Procedure: After informed consent was verified the patient was brought to the operating room and placed in a supine position.? Anesthesia was performed per protocol. Safety pause time-out was performed. Imaging was displayed in the room and laterality confirmed. Left ESWL was performed.?The stone was visualized on ultrasound.? Shockwave lithotripsy was performed, with a maximum rate of 120 hertz. After the first 300 shocks a pause for 3 minutes was completed.? A total of 2500 shocks to a maximum of power of 18 with a maximum rate of 120 hertz.? Some fragmentation of the stone was appreciated. The patient tolerated the procedure well and was transferred to the recovery area upon completion. Complications: None
[2024-12-01 09:47] VITALS: BP 118/76; PULSE 62; RESP 16; TEMP 36.3; O2SAT 96
[2024-12-01 09:52] VITALS: BP 127/79; PULSE 61; RESP 14; O2SAT 97
[2024-12-01 09:57] VITALS: BP 125/101; PULSE 57; RESP 14; O2SAT 98
[2024-12-01 10:02] VITALS: BP 125/90; PULSE 61; RESP 16; O2SAT 98
[2024-12-01 10:17] VITALS: BP 125/92; PULSE 52; RESP 16; TEMP 36.1; O2SAT 99
== END 2024-12-01 10:47 | disposition home or self-care (01) ==
PROVIDERS: Visit Provider Urology
PROC: (CPT 50590; principal; 2024-12-01 09:00)
DX: N20.0 Calculus of kidney (principal); Z87.442 Personal history of urinary calculi; Z88.5 Allergy status to narcotic agent; Z79.899 Other long term (current) drug therapy
CPT/HCPCS: 50590; 74018; J0131; J0690; J2003; J2250; J2704; J3010

== ENCOUNTER → 2024-12-01 06:52 | Outpatient (BNV) | payer MEDICAID, SELFPAY | PROVIDERS: Visit Provider Urology | DX: N20.0 Calculus of kidney (principal) | CPT/HCPCS: 50590 ==

== ENCOUNTER → 2024-12-01 08:00 | Outpatient (BNV) | payer MEDICAID, SELFPAY | PROVIDERS: Visit Provider Radiology Diagnostic Radiology | DX: N20.0 Calculus of kidney (principal) | CPT/HCPCS: 74018 ==

== ENCOUNTER 2024-12-02 14:19 | Outpatient (REF) | payer MEDICAID, SELFPAY ==
--- NOTE | ~2024-12-02 | XR_ITS ---
EXAMINATION: XR ABDOMEN KUB CLINICAL INDICATION: N20.0 - Calculus of kidney COMPARISON: None available. TECHNIQUE: AP view of the abdomen. FINDINGS: Again seen are at least 3 stones projecting over the lower right kidney. The mid and upper right kidney are obscured by colon content. The mid and upper left kidney is also obscured by colon content. There is possibly a stone in the lower pole left kidney. No abnormal calcifications are seen in the pelvis. XR/XR KUB IMPRESSION: Again seen, at least 3 stones in the lower right kidney, and a possibly stone in the lower left kidney. Most of the kidneys are obscured by colon content. Electronically signed by: Michael Farias MD 12/02/2024 02:41 PM EDT
--- OUTSIDE RECORDS SUMMARY | 2024-12-02 14:22 | XMS_ITS | Encounter Summary ---
Author Organization [employer] Address [address] [facility] 7[address] [place] [address] Care Team Providers Care Hydrostatic Tubing Tester Name Role Phone Neto Judy Unavailable Unavailable Weston Millan Unavailable Unavailable Mai Garcia DO Primary Care Provider Encounter Details Date Type Department Care Team (Late st Contact Info) Description 05/01/2023 Orders Only [facility] [address] [place] [address] Mai Garcia DO [address] [place] [address] Social History Tobacco Use Types Packs/Day Years [...] t he electric, gas, oil or water [employer] threatened to shut off services in your [...] Description 12/06/2024 1:45 PM EDT Office Visit [facility] MEDICAL [address] [place] [address] Mai Garcia DO [address] [place] [address] 03/24/2025 3:00 PM EDT Office Visit [facility] DENTAL [address] [place] [address] Carmela Ha documented as of this encounter [...] on filedocumented in this encounter Care Teams Hydrostatic Tubing Tester Relationship Specialty Start Date End Date Mai Garcia DO [address] [place] [address] PCP - General Family Medicine 04/07/23 Judy Duque Navigator Financial Counseling and Assistance Services 02/19/23 Weston Millan Community Health Worker 03/03/23 documented as of this encounter
== END 2024-12-02 14:20 | disposition home or self-care (01) ==
LOC: HO.XRAY 14:19
PROVIDERS: PCP Nurse Practitioner Family; Visit Provider Urology
DX: N20.0 Calculus of kidney (principal)
CPT/HCPCS: 74018

== ENCOUNTER → 2024-12-02 14:23 | Outpatient (BNV) | payer MEDICAID, SELFPAY | PROVIDERS: PCP Nurse Practitioner Family; Visit Provider Radiology Diagnostic Radiology | DX: N20.0 Calculus of kidney (principal) | CPT/HCPCS: 74018 ==

== ENCOUNTER 2024-12-29 15:24 | Outpatient (REF) | payer MEDICAID, SELFPAY ==
--- NOTE | ~2024-12-29 | US_ITS ---
EXAMINATION: US KIDNEY BILATERAL HISTORY: N20.0 - Calculus of kidney TECHNIQUE: Real-time grayscale ultrasound imaging of the kidneys was performed and images were reviewed. COMPARISON: Comparison is made with the prior examination dated 09/06/2024. FINDINGS: Right kidney: The right kidney measures 10.6 x 5.5 x 4.6 cm. Renal parenchymal echotexture and thickness are normal. There are no masses. There is a 3 mm nonobstructing calculus in the interpolar region and additional nonobstructing calculi at the lower pole measuring 4 mm and 3 mm. There is no hydronephrosis. Left Kidney: The left kidney measures 10.3 x 5.1 x 5.4 cm. Renal parenchymal echotexture and thickness are normal. There are no masses. There is a nonobstructing calculus in the mid to lower pole measuring 4 mm. There is no hydronephrosis. US/US renal BI IMPRESSION: Bilateral nephrolithiasis as described. Electronically signed by: Chase Goff MD 12/30/2024 06:59 AM EDT
--- OUTSIDE RECORDS SUMMARY | 2024-12-29 16:04 | XMS_ITS | Encounter Summary ---
Author Organization [employer] Address [address] [facility] 7[address] [place] [address] Care Team Providers Care Case Managers Name Role Phone Neto Judy Unavailable Unavailable Weston Millan Unavailable Unavailable Mai Garcia DO Primary Care Provider [phone] Encounter Details Date Type Department Care Team (Late st Contact Info) Description 05/01/2023 Orders Only [facility] [address] [place] [address] Mai Garcia DO [address] [place] [address] Social History Tobacco Use Types Packs/Day Years [...] t he electric, gas, oil or water [employer] threatened to shut off services in your [...] Care Team (Late st Contact Info) Description 01/14/2025 2:45 PM EDT Office Visit [facility] MEDICAL [address] [place] [address] Mai Garcia DO [address] [place] [address] 03/24/2025 3:00 PM EDT Office Visit [facility] DENTAL [address] [place] [address] Carmela Ha documented as of this encounter [...] on filedocumented in this encounter Care Teams Case Managers Relationship Specialty Start Date End Date Mai Garcia DO [address] [place] [address] PCP - General Family Medicine 04/07/23 Judy Duque Navigator Financial Counseling and Assistance Services 02/19/23 Weston Millan Community Health Worker 03/03/23 documented as of this encounter
--- OUTSIDE RECORDS SUMMARY | 2024-12-29 16:04 | XMS_ITS | Encounter Summary ---
Author Organization [facility] Address [address] [facility] [address] [place] [address] Phone Care Team Providers Care Supervisor Smoke Control Name Role Phone David Og NP Primary Care Provide r Denise Coyne YARN TEXTURE MACHINE OPERATOR Primary Care Provide r Pcp, Unknown Primary Care Provider UnavailNara Lopez MD Primary Care Provider [phone] Pcp, Unknown Primary Care Provider UnavailMai Minor DO Primary Care Provider [phone] Mai Garcia DO Primary Care Provider [phone] Lizbet Gray YARN TEXTURE MACHINE OPERATOR Unavailable Encounter Details Date Type Department Care Team (Late st Contact Info) Description 11/27/2020 Procedure Pass [facility], [address] [address] Social History Tobacco Use Types Packs/Day Years Used Date Smoking Tobacco: Every Day Smokeless Tobacco: Never Alcohol Use Standard Drinks/Week Comments Not Currently 0 (1 standard drink = 0.6 oz pur e alcohol) Sex and Gender Information Value Date Recorded Sex Assigned at Male 12/28/2023 10:28 PM EDT Legal Sex Male 8:32 PM EDT Gender Identity Male 12/28/2023 10:28 PM EDT Sexual Orientation Straight 12/28/2023 10 :28 PM EDT documented as of this encounter Plan of Treatment Upcoming Encounters Date Type Department Care Team (Late st Contact Info) Description 05/23/2025 4:00 PM EST Office Visit [facility] Rheumatology [address] [place] [address] Mima Perdomo MD [address] [facility], [address] [place] [address] documented as of this encounter Visit Diagnoses Not on filedocumented in this encounter Additional Health Concerns Infection Onset Date Last Indicated Resolved Time MRSA Comment:Import to add expiration date of 08/18/2021 per Infection Control as part of historical infection status reconciliation 08/22/2010 08/22/2010 08/19/19 1:35 AM EDT documented as of this encounter Care Teams Supervisor Smoke Control Relationship Specialty Start Date End Date David Og NP PCP - General 10/16/20 09/11/21 Denise Coyne NP PCP - General 09/12/21 05/04/23 Pcp, Unknown PCP - General 05/05/23 05/11/23 Nara Thrasher MD [address] [place] [address] PCP - General Internal Medicine 05/12/23 12/27/23 Pcp, Unknown PCP - General 12/28/23 12/29/23 Mai Garcia DO [address] [place] [address] PCP - General Family Medicine 12/30/23 09/29/24 Mai Garcia DO [address] [place] [address] PCP - General Family Medicine 09/30/24 Lizbet Gray NP [address] [place] [address] [email or web address] Practitioner 10/04/24 documented as of this encounter Additional Source Comments The information contained in this document represents components of the legal health record. It is not the complete legal health record.[facility]
== END 2024-12-29 15:25 | disposition home or self-care (01) ==
LOC: HO.US 15:24
PROVIDERS: Visit Provider Urology
DX: N20.0 Calculus of kidney (principal)
CPT/HCPCS: 76775

== ENCOUNTER → 2024-12-29 15:26 | Outpatient (BNV) | payer MEDICAID, SELFPAY | PROVIDERS: Visit Provider Radiology Diagnostic Radiology | DX: N20.0 Calculus of kidney (principal) | CPT/HCPCS: 76775 ==

== ENCOUNTER 2025-01-06 15:27 | Outpatient (AMB) | payer MEDICAID, SELFPAY ==
--- OUTSIDE RECORDS SUMMARY | 2025-01-06 15:29 | XMS_ITS | Encounter Summary ---
Author Organization [facility] Address [address] [facility] [address] [place] [address] Phone Care Team Providers Care Matcher Name Role Phone David Og NP Primary Care Provide r Denise Coyne BEHAVIORAL HEALTH CONSULTANT Primary Care Provide r Pcp, Unknown Primary Care Provider UnavailNara Lopez MD Primary Care Provider [phone] Pcp, Unknown Primary Care Provider UnavailMai Minor DO Primary Care Provider [phone] Mai Garcia DO Primary Care Provider [phone] Lizbet Gray BEHAVIORAL HEALTH CONSULTANT Unavailable Encounter Details Date Type Department Care Team (Late st Contact Info) Description 11/27/2020 Procedure Pass [facility], [address] [address] Social History Tobacco Use Types Packs/Day Years [...] Description 05/23/2025 4:00 PM EST Office Visit [facility] Rheumatology [address] [place] [address] Mima Perdomo MD [address] [facility], [address] [place] [address] documented as of this encounter Visit Diagnoses Not on filedocumented in this encounter Additional Health Concerns Infection Onset Date Last Indicated Resolved Time MRSA Comment:Import to add expiration date of 08/18/2021 per Infection Control as part of historical infection status reconciliation 08/22/2010 08/22/2010 08/19/19 1:35 AM EDT documented as of this encounter Care Teams Matcher Relationship Specialty Start Date End Date David Og NP PCP - General 10/16/20 09/11/21 Denise Coyne NP PCP - General 09/12/21 05/04/23 Pcp, Unknown PCP - General 05/05/23 05/11/23 Nara Thrasher MD [address] [place] [address] PCP - General Internal Medicine 05/12/23 12/27/23 Pcp, Unknown PCP - General 12/28/23 12/29/23 Mai Garcia DO [address] [place] [address] PCP - General Family Medicine 12/30/23 09/29/24 Mai Garcia DO [address] [place] [address] PCP - General Family Medicine 09/30/24 Lizbet Gray NP [address] [place] [address] [email or web address] Nurse Practitioner 10/04/24 documented as of this encounter Additional Source Comments The information contained in this document represents components of the legal health record. It is not the complete legal health record.[facility]
--- OUTSIDE RECORDS SUMMARY | 2025-01-06 15:29 | XMS_ITS | Encounter Summary ---
Author Organization [employer] Address [address] [facility] [address] [place] [address] Care Team Providers Care Color Adviser Name Role Phone Neto Judy Unavailable Unavailable Weston Millan Unavailable Unavailable Mai Garcia DO Primary Care Provider [phone] Encounter Details Date Type Department Care Team (Late st Contact Info) Description 05/01/2023 Orders Only [facility] [address] [place] [address] Mai Garcia DO [address] [place] [address] Social History Tobacco Use Types Packs/Day Years [...] t he electric, gas, oil or water [employer] threatened to shut off services in your [...] Description 01/14/2025 2:45 PM EDT Office Visit [facility] MEDICAL [address] [place] [address] Mai Garcia DO [address] [place] [address] 03/24/2025 3:00 PM EDT Office Visit [facility] DENTAL [address] [place] [address] Carmela Ha documented as of this encounter [...] on filedocumented in this encounter Care Teams Color Adviser Relationship Specialty Start Date End Date Mai Garcia DO [address] [place] [address] PCP - General Family Medicine 04/07/23 Judy Duque Navigator Financial Counseling and Assistance Services 02/19/23 Weston Millan Community Health Worker 03/03/23 documented as of this encounter
--- NOTE | 2025-01-06 15:32 | MHC.OFFVIS ---
Intake Visit Reasons: ESWL follow up/KUB Intake Note: Patient is present for follow up/KUB/ESWL Urology Medication: Vitamin B6 Antibiotic Allergies:None Blood Thinners: None Fruit [employer] Agent Required: No Accompanied by: Spouse Allergies No Known Allergies Allergy (Verified 01/06/25 15:33) Medication List - Last Reconciled 01/06/25 by Regina Bills MD brinzolamide 1% (Azopt) 1 drp ophthalmic (eye) TID clotrimazole-betamethasone 1-0.05 % appl topical BID diclofenac sodium 1% grams topical DIRECTED etanercept (Enbrel SureClick) 50 mg subcut QWEEK fluocinolone acetonide oil 0.01% drps otic (ears) gabapentin 600 mg PO TID PRN ibuprofen 600 mg PO Q6H PRN omeprazole 20 mg PO QAM pyridoxine (vitamin B6) 100 mg PO DAILY HPI Comments Details: 01/06/25--s/p Left ESWL 09/13/24--38-year-old male presenting with nephrolithiasis management. Previous imaging confirmed the presence of multiple renal calculi in the right kidney, with a significant occurrence of a 10 mm stone treated on August 04, 2024 using extracorporeal shock wave lithotripsy (ESWL). Subsequent imaging and urine studies confirmed residual stones in both kidneys, with a 5 mm stone in the left side necessitating further intervention. I reviewed and discussed the 24-hour urine collection which demonstrated appropriate hydration levels with urinary calcium being normal and urinary oxalate at the upper end of normal. The dietary recommendations emphasized moderation in high-oxalate foods, calcium consumption from dairy, and sodium intake reduction to mitigate further stone formation risks. The patient has been continuing on vitamin B6 supplementation to aid in managing the urinary oxalate level. Results - Imaging: Renal ultrasound revealed multiple residual stones in the right kidney as well as a 5 mm stone in the left kidney. - Labs: 24-hour urinary collection showed normal calcium (150 mg) and high-normal oxalate levels. 06/07/24 Noah 38 year old, is here for follow-up, he states he sent his 24 hour urine collection off this morning; he had a CT stone protocol there were bilateral stones largest in the right kidney 1 cm. CTAP -05/27/24-KIDNEYS AND URETERS: The kidneys are normal in size, shape, and attenuation. There is bilateral nephrolithiasis. The largest radiopaque calculi upper pole right kidney measures 1 cm. There is no calyx cases or hydronephrosis seen. ESWL. Discussed risks to include but not limited to, blood in the urine, bruising to the skin, kidney hematoma, possible need for another procedure if a stone fragment obstructs the ureter while passing, possible need to repeat procedure if stone is not completely fragmented. Bilateral kidney stones, stone burden right greater than left. Right ESWL 01/16/24--Recent retroperitoneal ultrasound results reviewed with the patient today increase in stone burden bilateral stones visualized. Noah was in the emergency room at [facility] for left flank pain, he was given Flomax and thinks he passed a stone from the left kidney because the pain has resolved. Stressed the importance of continuing to drink plenty of water daily. Continue adding 1 oz of lemon juice to water daily. Cont vitamin B6. Discussed further evaluation with 24 hour urine collection we will check CT stone protocol. 07/14/23--Noah is a very pleasant 37-year-old male patient of Dr. Taylor. He presents to the office today for follow-up. Of note, patient was seen approximately 1 month ago as a new patient for nephrolithiasis at which time a retroperitoneal ultrasound was ordered for further assessment evaluation. These results reviewed with the patient today. Right kidney with no lesions or hydronephrosis. Nonobstructing stones measuring up to 4 mm. Left kidney with no calculi, lesions, and or hydronephrosis. The bladder is well distended and normal. Bilateral ureteral jets are demonstrated. Pre void bladder volume is approximately 150 mL. Postvoid bladder volume is approximately 10 mL. Prostate is within normal size measuring approximately 12 mL. Patient reports pain had been experiencing approximately 2 months ago when he seeked emergency room care at [facility] Keith has since subsided. Discussed at length potential causes of nephrolithiasis. He does have a longstanding history of nephrolithiasis requiring surgical intervention with a ureteroscopy and stent placement in the past with Dr. Lazar. He otherwise currently denies any bothersome urinary issues or concerns. He does endorse to not be drinking plenty of water daily. When asked he denies urinary urgency, urinary frequency, incontinence, nocturia, hematuria, dysuria, foul smelling urine, changes to urinary stream, flank pain, fever, and or chills. He is happy with his current voiding parameters. PFSH Medical History GERD (gastroesophageal reflux disease) Renal calculi Surgical History Hx of lithotripsy Social History Patient Tobacco Use Status: Former Tobacco user Results AMB Urinalysis, Automated UA Leukoctes 0 Alexis/uL Last Edit by Angela Patel on 01/06/25 15:54 UA Nitrite Negative Last Edit by Angela Patel on 01/06/25 15:54 UA Urobilinogen 3.5 mg/dL Last Edit by Angela Patel on 01/06/25 15:54 UA Protein 0 mg/dL Last Edit by Angela Patel on 01/06/25 15:54 UA pH 6.0 Last Edit by Angela Patel on 01/06/25 15:54 UA Blood 0 Willy/uL Last Edit by Angela Patel on 01/06/25 15:54 UA Specific [place] 1.020 Last Edit by Angela Patel on 01/06/25 15:54 UA Ketone Negative Last Edit by Angela Patel on 01/06/25 15:54 UA Bilirubin 0 mg/dL Last Edit by Angela Patel on 01/06/25 15:54 UA Glucose 0 mg/dL Last Edit by Angela Patel on 01/06/25 15:54 Assessment & Plan Assessment & Plan Orders: Orders AMB Urinalysis Automated Today N20.0 - Calculus of kidney Medications: New pyridoxine (vitamin B6) 100 mg PO DAILY 90 tabs 3RF Discontinued pyridoxine (vitamin B6) Discontinued Reason: Duplicate 50 mg (1/2 x 100 mg) PO DAILY 90 days 45 tabs 1RF N13.2 - Hydronephrosis with renal and ureteral calculous obstruction Coding
== END 2025-01-06 15:56 | disposition home or self-care (01) ==
LOC: HO.HUSH 15:27
PROVIDERS: Visit Provider Urology
DX: N20.0 Calculus of kidney (principal)

== ENCOUNTER → 2025-01-06 15:27 | Outpatient (BNVA) | payer MEDICAID, SELFPAY | PROVIDERS: Visit Provider Urology | DX: N20.0 Calculus of kidney (principal) | CPT/HCPCS: 81003; 99212 ==